=== PATIENT | female | born 1965 | race Caucasian/White ===

== ENCOUNTER 2022-06-27 17:52 | Inpatient (IN) | payer MEDICARE, OTHER, SELFPAY ==
[2022-06-27] VITALS (32 sets, daily range): BP systolic 98–183; BP diastolic 52–93; PULSE 77–111; RESP 10–32; O2SAT 67–100
--- NOTE | 2022-06-27 17:42 | XRR_ITS ---
PROCEDURE INFORMATION: Exam: XR Chest Exam date and time: 06/27/2022 6:48 PM Age: 57 years old Clinical indication: Shortness of breath; Additional info: Resp arrest post ett TECHNIQUE: Imaging protocol: Radiologic exam of the chest. Views: 1 view. COMPARISON: No relevant prior studies available. FINDINGS: Tubes, catheters and devices: Endotracheal tube terminates 3 cm above the teagan. Lungs: Unremarkable. No consolidation. Pleural spaces: Unremarkable. No pleural effusion. No pneumothorax. Heart/Mediastinum: Unremarkable. No cardiomegaly. Bones/joints: Unremarkable. XR/XR chest 1V portable [id number] IMPRESSION: Endotracheal tube noted in proper positioning. No acute findings.
--- NOTE | 2022-06-27 17:42 | ECG_ITS ---
[facility] Test Date: 2022-06-27 Pat Name: Codi Gutierrez Department: Room: Gender: Female Quality Manager: : 1965 Requested By: Jose Angel Ngo Order Number: [id number] Jared MD: Shilpa Pacheco M.D. Measurements Intervals [place] Rate: 103 P: 74 ND: 140 QRS: 62 QRSD: 80 T: 79 QT: 331 QTc: 435 Interpretive Statements SINUS TACHYCARDIA POSSIBLE LEFT ATRIAL ENLARGEMENT [-0.1mV P-WAVE IN V1/V2] SEPTAL MYOCARDIAL INFARCTION , OF INDETERMINATE AGE [40+ ms Q WAVE IN V1/V2] No previous ECG available for comparison Electronically Signed On 06-28-2022 5:26:08 PROTOTYPE ENGINEER by Shilpa Pacheco M.D. [id number]
--- NOTE | 2022-06-27 17:48 | CTR_ITS ---
PROCEDURE INFORMATION: Exam: CT Chest Without Contrast; Diagnostic Exam date and time: 06/27/2022 9:29 PM Age: 57 years old Clinical indication: Other: Post cardiac arrest; Other: Arrival via EMS unresponsive; Additional info: S/P cardiac arrest TECHNIQUE: Imaging protocol: Diagnostic computed tomography of the chest without contrast. Radiation optimization: All CT scans at this facility use at least one of these dose optimization techniques: automated exposure control; mA and/or kV adjustment per patient size (includes targeted exams where dose is matched to clinical indication); or iterative reconstruction. COMPARISON: CR (CHEST, ) 06/27/2022 8:16 PM RADIATION DOSE METRICS: Total DLP (mGy-cm): 1169.09 FINDINGS: Tubes, catheters and devices: Endotracheal tube noted in proper positioning above the teagan. Lungs: No consolidation. No masses. Pleural spaces: No pneumothorax. No pleural effusion. Heart: No coronary artery calcifications. No cardiomegaly. No pericardial effusion. Lymph nodes: Unremarkable. No enlarged lymph nodes. Vasculature: Unremarkable. No aortic aneurysm. Bones/joints: Unremarkable. No acute fracture. Soft tissues: Unremarkable. PROCEDURE INFORMATION: Exam: CT Abdomen And Pelvis Without Contrast Exam date and time: 06/27/2022 9:29 PM Age: 57 years old Clinical indication: Other: Post cardiac arrest; Other: Arrival via EMS unresponsive; Additional info: S/P cardiac arrest TECHNIQUE: Imaging protocol: Computed tomography of the abdomen and pelvis without contrast. Radiation optimization: All CT scans at this facility use at least one of these dose optimization techniques: automated exposure control; mA and/or kV adjustment per patient size (includes targeted exams where dose is matched to clinical indication); or iterative reconstruction. COMPARISON: CR (CHEST, ) 06/27/2022 8:16 PM RADIATION DOSE METRICS: Total DLP (mGy-cm): 1169.09 FINDINGS: Liver: Normal. No mass. Gallbladder and bile ducts: Cholecystectomy. No ductal dilation. Pancreas: Normal. No ductal dilation. Spleen: Normal. No splenomegaly. Adrenal glands: Normal. No mass. Kidneys and ureters: Asymmetric atrophy of the right kidney. Punctate nonobstructing stone in the inferior pole of the right kidney. No hydronephrosis. Stomach and bowel: NG tube terminates in the stomach. Scattered colonic diverticulosis. No obstruction. No mucosal thickening. Appendix: No evidence of appendicitis. Intraperitoneal space: Unremarkable. No free air. No significant fluid collection. Vasculature: Unremarkable. No abdominal aortic aneurysm. Lymph nodes: Unremarkable. No enlarged lymph nodes. Urinary bladder: Solis catheter noted within a decompressed bladder. Reproductive: Unremarkable as visualized. Bones/joints: No acute fracture. Soft tissues: Unremarkable. CT/[place] [id number] IMPRESSION: No acute findings. IMPRESSION: No acute findings.
--- NOTE | 2022-06-27 17:48 | CTR_ITS ---
PROCEDURE INFORMATION: Exam: CT Head Without Contrast Exam date and time: 06/27/2022 9:26 PM Age: 57 years old Clinical indication: Injury or trauma; Other: S/P cardiac arrest; Unconscious; Additional info: Ams/resp arrest TECHNIQUE: Imaging protocol: Computed tomography of the head without contrast. Radiation optimization: All CT scans at this facility use at least one of these dose optimization techniques: automated exposure control; mA and/or kV adjustment per patient size (includes targeted exams where dose is matched to clinical indication); or iterative reconstruction. COMPARISON: No relevant prior studies available. RADIATION DOSE METRICS: Total DLP (mGy-cm): 1205.96 FINDINGS: Brain: No hemorrhage. No edema. Mild diffuse cerebral atrophy. Old lacunar infarct noted in the right caudate head. No mass effect. Cerebral ventricles: No ventriculomegaly. Paranasal sinuses: Opacified maxillary, frontal, ethmoid, and left sphenoid sinuses. Mastoid air cells: Visualized mastoid air cells are well aerated. Bones/joints: Unremarkable. No acute fracture. Soft tissues: Unremarkable. CT/CT head wo con* [id number] IMPRESSION: 1. No acute intracranial abnormality. 2. Old lacunar infarct in the right caudate head.
[2022-06-27 17:53] LABS: Alveolar-Arterial Oxygen Gradi 64.6 mmHg (5-10); Arterial Blood Gas Hematocrit 31.2 % (37-47); Blood Gas Allen Test Pos; Blood Gas Operator Identificat GD; Blood Gas Sample Site Radial, right; Blood Gas Sample Type Arterial; Carboxyhemoglobin 0.8 %THgb (0.4-20.1); HCO3 ABG 22.4 mmol/L (22-26); HGB O2 Sat 96.7 % (95-100); Ionized Calcium Level - ABG 1.3 mmol/L (1.1-1.4); Oxygen Device AMBU; Oxygen Saturation ABG 98.5; Total Hemoglobin 10.2 g/dL (12-16)
[2022-06-27 17:54] LABS: ABG PCO2 65.6 mmHg (35-45); ABG PH Result 7.14 (7.35-7.45)
--- NOTE | 2022-06-27 17:56 | ED_ITS ---
Documented by User: Jose Angel Nguyen DO 07/05/22 07:02 HPI - General Adult General: Chief complaint: Shortness of Breath/Dyspnea Stated complaint: Respiratory Arrest Time Seen by Provider: 06/27/22 18:14 Source: patient Mode of arrival: ambulatory History of Present Illness: 7-year-old female presents emergency room via EMS intubated ventilated by bag valve mask. Patient was acting altered had si gnificant air hunger according to EMS. They report there initially called out for altered mental status possible stroke on arrival they thought she may have been under the influence. She deteriorated she was RSI it and intubated in the field given ketamine on arrival here she is mildly hypertensive completely nonresponsive no family members present at the bedside. Review of Systems General: Reports: ROS unobtainable due to endotracheal tube [facility] ED PFSH: Medical History Asthma COPD (chronic obstructive pulmonary disease) Surgical History H/O tubal ligation Hx of cholecystectomy Family History Other Cancer Social History (Updated 06/28/22 @ 00:00 by Jag Mcgee MD) Smoking and tobacco status: current every day smoker Supplemental PFSH Information: due to endotracheal tube Physical Exam Const: ORIENTATION/CONSCIOUSNESS: Yes patient obtunded HENMT: COMMON NORMALS: normocephalic, atraumatic and hearing grossly normal bilaterally HEAD & SCALP: normocephalic and atraumatic Resp: AUSCULTATION: wheezes Cardio: COMMON NORMALS: regular rate, regular rhythm and No murmurs present (Cardio) RATE: regular rate RHYTHM: regular rhythm GI: COMMON NORMALS: Soft to palpation and No hepatosplenomegaly present AUSCULTATION: Yes normoactive bowel sounds PALPATION: Yes Soft to palpation, No Tenderness to palpation present (GI), No Guarding due to palpation present (GI) and Yes No hepatosplenomegaly present Extremity: COMMON NORMALS: normal to inspection, capillary refill normal, no clubbing, cyanosis or edema, no calf tenderness and no pedal edema Skin: COMMON NORMALS: no rashes or lesions noted GENERAL SKIN EXAM: no rashes or lesions noted Course Vital Signs: Vital signs: Vital Signs Temperature 97.9 F 07/01/22 12:14 Pulse Rate 100 07/01/22 12:14 Respiratory Rate 18 07/01/22 12:14 Blood Pressure 168/85 07/01/22 12:14 Pulse Oximetry 94 07/01/22 12:14 Oxygen Delivery Me thod 07/01/22 11:36 Oxygen Flow Rate 3 06/30/22 00:06 Fraction of Inspir ed Oxygen 30 06/29/22 09:34 MDM - General Adult Medical Decision Making Care signed out to Dr. Davey at change of shift. See final notes for diagnosis and disposition. Medical Records I reviewed the patient's medical records. Lab Data I reviewed the patient's lab results. 07/01/22 09:58 07/01/22 09:58 Radiology Impressions Chest/Abdomen/Pelvis CT 06/27/22 17:48 IMPRESSION: No acute findings. IMPRESSION: No acute findings. Head CT 06/27/22 17:48 IMPRESSION: 1. No acute intracranial abnormality. 2. Old lacunar infarct in the right caudate head. Chest X-Ray 06/27/22 20:11 IMPRESSION: Proper positioning of support apparatus. Laboratory Results WBC 14.9 10^3/uL (4.0-10.0) H 06/27/22 17:46 RBC 4.39 10^6/uL (4.1-5.3) 06/27/22 17:46 Hgb 9.8 g/dL (11.5-15.3) L 06/27/22 17:46 Hct 33.6 % (37.0-47.0) L 06/27/22 17:46 MCV 76.5 fl (81-99) L 06/27/22 17:46 MCH 22.3 pg (28.0-34.0) L 06/27/22 17:46 MCHC 29.2 g/dL (30.0-36.0) L 06/27/22 17:46 RDW 19.5 % (12.1-15.1) H 06/27/22 17:46 Plt Count 308 10^3/cmm (130-400) 06/27/22 17:46 MPV 11.9 fL (7.4-10.4) H 06/27/22 17:46 Neut % (Auto) 76.6 % 06/27/22 17:46 Lymph % (Auto) 11.8 % 06/27/22 17:46 [place] % (Auto) 8.6 % 06/27/22 17:46 Eos % (Auto) 1.2 % 06/27/22 17:46 Baso % (Auto) 0.9 % 06/27/22 17:46 Neut # (Auto) 11.39 10^3/uL (1.8-7.7) H 06/27/22 17:46 Lymph # (Auto) 1.8 10^3/uL (0.8-4.8) 06/27/22 17:46 [place] # (Auto) 1.3 10^3/uL (0.2-0.9) H 06/27/22 17:46 Eos # (Auto) 0.2 10^3/uL (0.0-0.8) 06/27/22 17:46 Baso # (Auto) 0.1 10^3/uL (0.0-0.1) 06/27/22 17:46 Nucleated RBC % (auto) 0 % 06/27/22 17:46 Nucleated RBCs # 0.0 /100WBC 06/27/22 17:46 Specimen Type Arterial 06/27/22 19:29 Sample Site Radial, right 06/27/22 19:29 ABG pH 7.23 (7.35-7.45) L 06/27/22 19:29 ABG pCO2 48.4 mmHg (35-45) H 06/27/22 19:29 ABG pO2 514.0 mmHg (80.0-100.0) H 06/27/22 19:29 ABG HCO3 20.4 mmol/L (22-26) L 06/27/22 19:29 ABG O2 Saturation 98.5 06/27/22 17:35 ABG Base Excess -6.9 mmol/L (-2.0-2.0) L 06/27/22 19:29 Zachary Test Pos 06/27/22 19:29 A-a O2 Gradient 64.6 mmHg (5-10) H 06/27/22 17:35 Hematocrit 30.0 % (37-47) L 06/27/22 19:29 Hgb O2 Saturation 96.7 % (95-100) 06/27/22 17:35 Carboxyhemoglobin 0.8 %THgb (0.4-20.1) 06/27/22 17:35 Methemoglobin 1.0 % (0.4-1.5) 06/27/22 17:35 Total Hemoglobin 10.2 g/dL (12-16) L 06/27/22 17:35 Sodium 140.0 mmol/L (131-143) 06/27/22 17:35 Potassium 5.0 mmol/L (3.5-5.0) 06/27/22 17:35 Glucose 159.0 mg/dL (70-115) H 06/27/22 17:35 Ionized Calcium 1.3 mmol/L (1.1-1.4) 06/27/22 17:35 O2 Delivery Device Vent 06/27/22 19:29 FiO2 100.0 % 06/27/22 19:29 PEEP 8.0 cmH20 06/27/22 19:29 Propeller Driven Airplane Mechanic ID [place] 06/27/22 19:29 Sodium 135 mmol/L (136-145) L 06/27/22 17:46 Potassium 5.3 mmol/L (3.5-5.1) H 06/27/22 17:46 Chloride 99 mmol/L (98-107) 06/27/22 17:46 Carbon Dioxide 22 mmol/L (22-29) 06/27/22 17:46 Anion Gap 19.3 (5-19) H 06/27/22 17:46 BUN 52 mg/dL (6-20) H 06/27/22 17:46 Creatinine 139.6 mg/dL (> or = 20.0) 06/27/22 20:05 GFR Calculation 12.9 mL/min (90-130) L 06/27/22 17:46 Glucose 149 mg/dL (65-115) H 06/27/22 17:46 POC Glucose 176 mg/dL (70-110) H 06/27/22 18:11 Specific [place] Not Reportable 06/27/22 20:05 Calculated Osmolality 297 mOsm/kg (285-295) H 11/09/22 17:46 Lactic Acid 0.9 mmol/L (0.5-2.2) 06/27/22 17:46 Calcium 9.8 mg/dL (8.5-10.5) 06/27/22 17:46 Total Bilirubin 0.2 mg/dL (0.15-1.2) 06/27/22 17:46 AST 38 U/L (0-32) H 06/27/22 17:46 ALT 19 U/L (0-33) 06/27/22 17:46 Alkaline Phosphatase 161 U/L (35-105) H 06/27/22 17:46 Troponin T Baseline 41 ng/L (0-10) H 06/27/22 17:46 Troponin T 120 Minute 30.47 ng/L (0-10) H 06/27/22 19:49 Delta Troponin T -10.53 ABS# (0-10) L 06/27/22 19:49 Total Protein 8.3 g/dL (6.6-8.7) 06/27/22 17:46 Albumin 3.3 g/dL (3.5-5.2) L 06/27/22 17:46 Globulin 5.0 g/dL (1.3-4.6) H 06/27/22 17:46 Urine Color Yellow (Yellow) 06/27/22 20:05 Urine Appearance Clear (CLEAR) 06/27/22 20:05 Urine pH 5 (5-7) 06/27/22 20:05 Urine pH 5.6 (4.5-9.0) 06/27/22 20:05 Ur Specific [place] 1.025 (1.005-1.030) 06/27/22 20:05 Urine Protein 1+ (Negative) H 06/27/22 20:05 Urine Glucose (UA) Norm (Normal) 06/27/22 20:05 Urine Ketones 1+ (Negative) H 06/27/22 20:05 Urine Blood 3+ (Negative) H 06/27/22 20:05 Urine Nitrate Negative (Negative) 06/27/22 20:05 Urine Bilirubin 1+ (Negative) H 06/27/22 20:05 Prot Sulfosalicylic Acd Negative (Negative) 06/27/22 20:05 Urine Urobilinogen Norm mg/dL (Negative) 06/27/22 20:05 Ur Leukocyte Esterase Negative (Negative) 06/27/22 20:05 Urine RBC 0-4 /hpf (0-2) H 06/27/22 20:05 Urine WBC 0-4 /hpf (0-5) H 06/27/22 20:05 Ur Squamous Epith Cells 0-4 /hpf (0-5) H 06/27/22 20:05 Amorphous Sediment Not Reportable 06/27/22 20:05 Urine Bacteria Trace /hpf (NONE) 06/27/22 20:05 Hyaline Casts 5-10 /lpf H 06/27/22 20:05 Urine Oxidant Negative mcg/mL (<200) 06/27/22 20:05 Urine Opiates Level Negative ng/mL (<100) 06/27/22 20:05 Urine Oxycodone Negative ng/mL (<100) 06/27/22 20:05 U Methadone Metabolites Negative ng/mL (<100) 06/27/22 20:05 Barbiturates Negative ng/mL (<300) 06/27/22 20:05 Phencyclidine (PCP) Negative ng/mL (<25) 06/27/22 20:05 Amphetamines Positive ng/mL (<500) A 06/27/22 20:05 Benzodiazepines Negative ng/mL (<100) 06/27/22 20:05 Cocaine Metabolite Negative ng/mL (<150) 06/27/22 20:05 U Marijuana Metabolites Negative ng/mL (<20) 06/27/22 20:05 Abn Spec Valid Drug Scn Not Reportable 06/27/22 20:05 Urine Drug Screen Note See note 06/27/22 20:05 SARS-CoV-2 Ag (Rapid) negative (Negative) 06/27/22 18:25 Discharge Plan Discharge Patient Disposition: Admitted As Inpatient Admit Provider: Jag Mcgee Clinical Impression: Acute respiratory failure with hypoxemia, Acute exacerbation of chronic obstructive airways disease, Acute kidney injury Condition: Stable Discharge Diet: Diabetic Coding Level of Care Code ED Hi Lift Operator for Chg Fwd Exam Detailed Documented by User: Emy Davey MD 06/27/22 22:21 HPI - General Adult General: Chief complaint: Shortness of Breath/Dyspnea Stated complaint: Respiratory Arrest Time Seen by Provider: 06/27/22 18:14 History of Present Illness: 57-year-old female presents emergency room via EMS intubated ventilated by bag valve mask. Patient was acting altered had significant air hunger according to EMS. They report there initially called out for altered mental status possible stroke on arrival they thought she may have been under the influence. She deteriorated she was RSI it and intubated in the field given ketamine on arrival here she is mildly hypertensive completely nonresponsive no family members present at the bedside. [facility] ED PFSH: Medical History Asthma COPD (chronic obstructive pulmonary disease) Surgical History H/O tubal ligation Hx of cholecystectomy Family History Other Cancer Social History (Updated 06/28/22 @ 00:00 by Jag Mcgee MD) Smoking and tobacco status: current every day smoker Course Vital Signs: Vital signs: Vital Signs Temperature 97.9 F 07/01/22 12:14 Pulse Rate 100 07/01/22 12:14 Respiratory Rate 18 07/01/22 12:14 Blood Pressure 168/85 07/01/22 12:14 Pulse Oximetry 94 07/01/22 12:14 Oxygen Delivery Me thod 07/01/22 11:36 Oxygen Flow Rate 3 06/30/22 00:06 Fraction of Inspir ed Oxygen 30 06/29/22 09:34 MDM - General Adult Medical Decision Making Care signed out to Dr. Davey at change of shift. See final notes for diagnosis and disposition. Patient presents here with respiratory failure she was intubated in the field by EMS likely from a COPD exacerbation patient's head CT and chest CT here are normal I did speak to the hospitalist will admit she also has acute kidney injury. Lab Data 07/01/22 09:58 07/01/22 09:58 Radiology Impressions Chest/Abdomen/Pelvis CT 06/27/22 17:48 IMPRESSION: No acute findings. IMPRESSION: No acute findings. Head CT 06/27/22 17:48 IMPRESSION: 1. No acute intracranial abnormality. 2. Old lacunar infarct in the right caudate head. Chest X-Ray 06/27/22 20:11 IMPRESSION: Proper positioning of support apparatus. Laboratory Results WBC 14.9 10^3/uL (4.0-10.0) H 06/27/22 17:46 RBC 4.39 10^6/uL (4.1-5.3) 06/27/22 17:46 Hgb 9.8 g/dL (11.5-15.3) L 06/27/22 17:46 Hct 33.6 % (37.0-47.0) L 06/27/22 17:46 MCV 76.5 fl (81-99) L 06/27/22 17:46 MCH 22.3 pg (28.0-34.0) L 06/27/22 17:46 MCHC 29.2 g/dL (30.0-36.0) L 06/27/22 17:46 RDW 19.5 % (12.1-15.1) H 06/27/22 17:46 Plt Count 308 10^3/cmm (130-400) 06/27/22 17:46 MPV 11.9 fL (7.4-10.4) H 06/27/22 17:46 Neut % (Auto) 76.6 % 06/27/22 17:46 Lymph % (Auto) 11.8 % 06/27/22 17:46 [place] % (Auto) 8.6 % 06/27/22 17:46 Eos % (Auto) 1.2 % 06/27/22 17:46 Baso % (Auto) 0.9 % 06/27/22 17:46 Neut # (Auto) 11.39 10^3/uL (1.8-7.7) H 06/27/22 17:46 Lymph # (Auto) 1.8 10^3/uL (0.8-4.8) 06/27/22 17:46 [place] # (Auto) 1.3 10^3/uL (0.2-0.9) H 06/27/22 17:46 Eos # (Auto) 0.2 10^3/uL (0.0-0.8) 06/27/22 17:46 Baso # (Auto) 0.1 10^3/uL (0.0-0.1) 06/27/22 17:46 Nucleated RBC % (auto) 0 % 06/27/22 17:46 Nucleated RBCs # 0.0 /100WBC 06/27/22 17:46 Specimen Type Arterial 06/27/22 19:29 Sample Site Radial, right 06/27/22 19:29 ABG pH 7.23 (7.35-7.45) L 06/27/22 19:29 ABG pCO2 48.4 mmHg (35-45) H 06/27/22 19:29 ABG pO2 514.0 mmHg (80.0-100.0) H 06/27/22 19:29 ABG HCO3 20.4 mmol/L (22-26) L 06/27/22 19:29 ABG O2 Saturation 98.5 06/27/22 17:35 ABG Base Excess -6.9 mmol/L (-2.0-2.0) L 06/27/22 19:29 Zachary Test Pos 06/27/22 19:29 A-a O2 Gradient 64.6 mmHg (5-10) H 06/27/22 17:35 Hematocrit 30.0 % (37-47) L 06/27/22 19:29 Hgb O2 Saturation 96.7 % (95-100) 06/27/22 17:35 Carboxyhemoglobin 0.8 %THgb (0.4-20.1) 06/27/22 17:35 Methemoglobin 1.0 % (0.4-1.5) 06/27/22 17:35 Total Hemoglobin 10.2 g/dL (12-16) L 06/27/22 17:35 Sodium 140.0 mmol/L (131-143) 06/27/22 17:35 Potassium 5.0 mmol/L (3.5-5.0) 06/27/22 17:35 Glucose 159.0 mg/dL (70-115) H 06/27/22 17:35 Ionized Calcium 1.3 mmol/L (1.1-1.4) 06/27/22 17:35 O2 Delivery Device Vent 06/27/22 19:29 FiO2 100.0 % 06/27/22 19:29 PEEP 8.0 cmH20 06/27/22 19:29 Propeller Driven Airplane Mechanic ID Dez 06/27/22 19:29 Sodium 135 mmol/L (136-145) L 06/27/22 17:46 Potassium 5.3 mmol/L (3.5-5.1) H 06/27/22 17:46 Chloride 99 mmol/L (98-107) 06/27/22 17:46 Carbon Dioxide 22 mmol/L (22-29) 06/27/22 17:46 Anion Gap 19.3 (5-19) H 06/27/22 17:46 BUN 52 mg/dL (6-20) H 06/27/22 17:46 Creatinine 139.6 mg/dL (> or = 20.0) 06/27/22 20:05 GFR Calculation 12.9 mL/min (90-130) L 06/27/22 17:46 Glucose 149 mg/dL (65-115) H 06/27/22 17:46 POC Glucose 176 mg/dL (70-110) H 06/27/22 18:11 Specific [place] Not Reportable 06/27/22 20:05 Calculated Osmolality 297 mOsm/kg (285-295) H 06/27/22 17:46 Lactic Acid 0.9 mmol/L (0.5-2.2) 06/27/22 17:46 Calcium 9.8 mg/dL (8.5-10.5) 06/27/22 17:46 Total Bilirubin 0.2 mg/dL (0.15-1.2) 06/27/22 17:46 AST 38 U/L (0-32) H 06/27/22 17:46 ALT 19 U/L (0-33) 06/27/22 17:46 Alkaline Phosphatase 161 U/L (35-105) H 06/27/22 17:46 Troponin T Baseline 41 ng/L (0-10) H 06/27/22 17:46 Troponin T 120 Minute 30.47 ng/L (0-10) H 06/27/22 19:49 Delta Troponin T -10.53 ABS# (0-10) L 06/27/22 19:49 Total Protein 8.3 g/dL (6.6-8.7) 06/27/22 17:46 Albumin 3.3 g/dL (3.5-5.2) L 06/27/22 17:46 Globulin 5.0 g/dL (1.3-4.6) H 06/27/22 17:46 Urine Color Yellow (Yellow) 06/27/22 20:05 Urine Appearance Clear (CLEAR) 06/27/22 20:05 Urine pH 5 (5-7) 06/27/22 20:05 Urine pH 5.6 (4.5-9.0) 06/27/22 20:05 Ur Specific [place] 1.025 (1.005-1.030) 06/27/22 20:05 Urine Protein 1+ (Negative) H 06/27/22 20:05 Urine Glucose (UA) Norm (Normal) 06/27/22 20:05 Urine Ketones 1+ (Negative) H 06/27/22 20:05 Urine Blood 3+ (Negative) H 06/27/22 20:05 Urine Nitrate Negative (Negative) 06/27/22 20:05 Urine Bilirubin 1+ (Negative) H 06/27/22 20:05 Prot Sulfosalicylic Acd Negative (Negative) 06/27/22 20:05 Urine Urobilinogen Norm mg/dL (Negative) 06/27/22 20:05 Ur Leukocyte Esterase Negative (Negative) 06/27/22 20:05 Urine RBC 0-4 /hpf (0-2) H 06/27/22 20:05 Urine WBC 0-4 /hpf (0-5) H 06/27/22 20:05 Ur Squamous Epith Cells 0-4 /hpf (0-5) H 06/27/22 20:05 Amorphous Sediment Not Reportable 06/27/22 20:05 Urine Bacteria Trace /hpf (NONE) 06/27/22 20:05 Hyaline Casts 5-10 /lpf H 06/27/22 20:05 Urine Oxidant Negative mcg/mL (<200) 06/27/22 20:05 Urine Opiates Level Negative ng/mL (<100) 06/27/22 20:05 Urine Oxycodone Negative ng/mL (<100) 06/27/22 20:05 U Methadone Metabolites Negative ng/mL (<100) 06/27/22 20:05 Barbiturates Negative ng/mL (<300) 06/27/22 20:05 Phencyclidine (PCP) Negative ng/mL (<25) 06/27/22 20:05 Amphetamines Positive ng/mL (<500) A 06/27/22 20:05 Benzodiazepines Negative ng/mL (<100) 06/27/22 20:05 Cocaine Metabolite Negative ng/mL (<150) 06/27/22 20:05 U Marijuana Metabolites Negative ng/mL (<20) 06/27/22 20:05 Abn Spec Valid Drug Scn Not Reportable 06/27/22 20:05 Urine Drug Screen Note See note 06/27/22 20:05 SARS-CoV-2 Ag (Rapid) negative (Negative) 06/27/22 18:25 Critical Care Time Critical Care Time: Critical Care Time: Yes Total Critical Care Time: 40 Attestation: The high probability of a clinically significant, sudden or life threatening deterioration of the patient's resp system(s) required my full and direct attention, intervention and personal management. The critical care time is as shown. This time is in addition to time spent performing any reported procedures but includes the following: [x] Data and vital sign review and interpretation [x] Patient assessment, examination and intervention [x] Documentation [x] Medication orders and management Discharge Plan Discharge Patient Disposition: Admitted As Inpatient Admit Provider: Jag Mcgee Clinical Impression: Acute respiratory failure with hypoxemia, Acute exacerbation of chronic obstructive airways disease, Acute kidney injury Condition: Stable Discharge Diet: Diabetic Coding Level of Care Code ED Hi Lift Operator for Chg Fwd Exam Detailed
[2022-06-27] MEDS: albuterol 2.5 mg/3 mL Neb INHALATION (18:00)
[2022-06-27] MEDS: propofol 1,000 MG/100 ML INJ 2.4 MG IV (18:00)
[2022-06-27 18:14] LABS: Glucose Point of Care 176 mg/dL (70-110)
--- NOTE | 2022-06-27 18:14 | PC.NURSE ---
PT PLACED ON CONTINUOUS NIBP, SPO2, AND CM
[2022-06-27] MEDS: ipratropium-albuterol 3 mL Neb INHALATION (18:20)
[2022-06-27 18:39] LABS: Basophils # 0.1 10^3/uL (0.0-0.1); Basophils % 0.9 %; Eosinophils # 0.2 10^3/uL (0.0-0.8); Eosinophils % 1.2 %; Hematocrit 33.6 % (37.0-47.0); Hemoglobin 9.8 g/dL (11.5-15.3); Lymphocytes # 1.8 10^3/uL (0.8-4.8); Lymphocytes % 11.8 %; Mean Corpuscular HGB Conc 29.2 g/dL (30.0-36.0); Mean Corpuscular Hemoglobin 22.3 pg (28.0-34.0); Mean Corpuscular Volume 76.5 fl (81-99); Mean Platelet Volume 11.9 fL (7.4-10.4); Monocytes # 1.3 10^3/uL (0.2-0.9); Monocytes % 8.6 %; Neutrophils # 11.39 10^3/uL (1.8-7.7); Neutrophils % 76.6 %; Nucleated Red Blood Cells % 0 %; Platelet Count 308 10^3/cmm (130-400); Red Blood Count 4.39 10^6/uL (4.1-5.3); Red Cell Distribution Width 19.5 % (12.1-15.1); White Blood Count 14.9 10^3/uL (4.0-10.0)
--- NOTE | 2022-06-27 18:54 | PC.PHAR ---
PT PHARMACY CLOSED - PT DAUGHTER HAD A LIST OF MEDICATIONS - PT ARRIVED INTUBATED UNABLE TO VERIFY MEDS- VERIFIED USING EXTERNAL MED LIST LAST FILLED AND BY LIST DAUGHTER HAD
[2022-06-27 18:58] LABS: SARS Covid-2 Antigen negative (Negative)
[2022-06-27] MEDS: sodium chloride 0.9% 1,000 ML 999 ML IV (19:00)
[2022-06-27 19:03] LABS: Troponin(5th) Baseline 41 ng/L (0-10)
[2022-06-27 19:04] LABS: Albumin Level 3.3 g/dL (3.5-5.2); Alkaline Phosphatase 161 U/L (35-105); Blood Urea Nitrogen 52 mg/dL (6-20); Calcium 9.8 mg/dL (8.5-10.5); Carbon Dioxide 22 mmol/L (22-29); Chloride 99 mmol/L (98-107); Glomerular Filtration Rate 12.9 mL/min (90-130); Glucose 149 mg/dL (65-115); Lactic Sepsis W/Reflex 0.9 mmol/L (0.5-2.2); Osmolality Calculated 297 mOsm/kg (285-295); Sodium 135 mmol/L (136-145); Total Bilirubin 0.2 mg/dL (0.15-1.2); Total Protein 8.3 g/dL (6.6-8.7)
[2022-06-27 19:40] LABS: ABG PCO2 48.4 mmHg (35-45); ABG PH Result 7.23 (7.35-7.45); Base Excess ABG -6.9 mmol/L (-2.0-2.0); Blood Gas Allen Test Pos; Blood Gas Operator Identificat WALCI; Blood Gas Sample Site Radial, right; Blood Gas Sample Type Arterial; HCO3 ABG 20.4 mmol/L (22-26)
[2022-06-27 19:41] LABS: Oxygen Device VENT
--- NOTE | 2022-06-27 19:42 | ECG_ITS ---
[facility] Test Date: 2022-06-27 Pat Name: Codi Gutierrez Department: Room: Gender: Female Graphite Disk Assembler: : 1965 Requested By: Jose Angel Ngo Order Number: [id number] Jared MD: Shilpa Pacheco M.D. Measurements Intervals [place] Rate: 104 P: 75 PA: 116 QRS: 63 QRSD: 82 T: 79 QT: 344 QTc: 454 Interpretive Statements SINUS TACHYCARDIA WITH SHORT PA INTERVAL POSSIBLE LEFT ATRIAL ENLARGEMENT [-0.1mV P-WAVE IN V1/V2] Compared to ECG 06/27/2022 18:16:03 Short PA interval now present Myocardial infarct finding no longer present Electronically Signed On 06-28-2022 11:40:21 PLANT TECHNICIAN/CONTROL ROOM OPERATOR by Shilpa Pacheco M.D. [id number]
[2022-06-27 19:43] LABS: Alanine Aminotransferase 19 U/L (0-33); Anion Gap 19.3 (5-19); Aspartate Amino Transferase 38 U/L (0-32); Potassium 5.3 mmol/L (3.5-5.1)
--- NOTE | 2022-06-27 20:11 | XRR_ITS ---
PROCEDURE INFORMATION: Exam: XR Chest Exam date and time: 06/27/2022 8:16 PM Age: 57 years old Clinical indication: Device placement; Ng tube; Additional info: Post ng tube placement TECHNIQUE: Imaging protocol: Radiologic exam of the chest. Views: 1 view. COMPARISON: CR (CHEST, ) 06/27/2022 6:48 PM FINDINGS: Tubes, catheters and devices: Endotracheal tube in proper position above the teagan. NG tube seen entering into the stomach and terminating outside the field of view. Lungs: No consolidation. Pleural spaces: No pleural effusion. No pneumothorax. Heart/Mediastinum: No cardiomegaly. Bones/joints: Visualized osseous structures are intact. XR/XR chest 1V [id number] IMPRESSION: Proper positioning of support apparatus.
[2022-06-27 20:22] LABS: Add Urine Microscopic? YES; Bilirubin Urine 1+ (Negative); Blood Urine 3+ (Negative); Glucose Urine UA Norm (Normal); Ketones Urine 1+ (Negative); Leukocyte Esterase Urine Negative (Negative); Nitrate Urine Negative (Negative); Protein Urine 1+ (Negative); Specific Gravity, Urine 1.025 (1.005-1.030); Sulfosalicylic Acid Urine Negative (Negative); Urine Appearance Clear (CLEAR); Urine Color Yellow (Yellow); Urobilinogen Urine Norm (Negative); pH Urine 5 (5-7)
[2022-06-27 20:27] LABS: Add Urine Culture? No; Bacteria Urine TRACE /hpf; RBC Urine 0-4 /hpf (0-2); Squamous Epithelial Cell Urine 0-4 /hpf (0-5); WBC Urine 0-4 /hpf (0-5)
[2022-06-27 20:51] LABS: Troponin 5 2HR 30.47 ng/L (0-10)
[2022-06-27 20:59] LABS: Troponin 5 2HR Delta -10.53 ABS# (0-10)
--- NOTE | 2022-06-27 23:18 | PC.NURSE ---
Report called to ICU.
--- NOTE | 2022-06-27 23:38 | PM.HP ---
Providers/Chief Complaint Admitting Physician: Jag Mcgee Chief Complaint: Respiratory Arrest History of Present Illness 57-year-old lady with history of asthma, COPD, prior smoking history, was brought in by EMS after found AMS, reported speaking confusedly, having jerky movements. Her daughter reports that the friend her mother had been staying with called her brother who came to see her and then called EMS, they were initially concerned about her possibly having a stroke. Her daughter states that she had recently been more short of breath than usual having to use her nebulizer more often than before. Her daughter reports also she has been feeling dizzy, although dizziness has been a longstanding issue which she states her primary doctor thought was related possibly to long COVID. Due to respiratory distress she was intubated in route. In ER In the ER air entry was diminished, sounding tight. Received breathing treatment, Solu-Medrol. She is afebrile, but with leukocytosis 14.9, predominantly neutrophilic. CT chest abdomen pelvis without acute findings. Head CT with old lacunar infarct in the right caudate head. Sodium 135, potassium 5.3, creatinine elevated at 3.6. BUN 52. Anion gap 19.3. Lactic acid 0.9. Glucose 149, as high as 176, AST mildly elevated 38. Alk phos 161. Baseline troponin 41, 2-hour troponin 30.47. Albumin 3.3. Globulin elevated at 5 g/dL. UA with 1+ protein, 1+ ketones, 3+ blood. 1+ bilirubin. 0-4 RBC, 0-4 WBC, 0-4 squamous Pelo cells. 5-10 hyaline casts. Review of Systems General: Reports: ROS unobtainable due to endotracheal tube and ROS unobtainable due to medical condition Medications/Allergies Home Medications Medication Instructions Recorded Confirmed Last Taken Type albuterol sulfate 90 mcg/actuation 2 puff inhalation Q4H PRN 06/27/22 06/27/22 Unknown History aerosol inhaler Shortness Of Breath Or Wheezing atorvastatin 20 mg tablet 20 mg PO QPM 06/27/22 06/27/22 Unknown History baclofen 20 mg tablet 20 mg PO BID 06/27/22 06/27/22 Unknown History guaifenesin 600 mg tablet, 1,200 mg PO BID PRN Cough 06/27/22 06/27/22 Unknown History extended release 12 hr (Mucinex) ipratropium 0.5 mg-albuterol 3 mg 3 ml inhalation Q6H PRN Shortness 06/27/22 06/27/22 Unknown History (2.5 mg base)/3 mL nebulization Of Breath Or Wheezing soln losartan 100 1 tab PO DAILY 06/27/22 06/27/22 Unknown History mg-hydrochlorothiazide 25 mg tablet meloxicam 15 mg tablet 15 mg PO DAILY 06/27/22 06/27/22 Unknown History omeprazole 40 mg capsule,delayed 40 mg PO DAILY 06/27/22 06/27/22 Unknown History release Allergies Allergy/AdvReac Type Severity Reaction Status Date / Time morphine Allergy Unknown Verified 06/27/22 18:53 PFSH Acute PFSH: Medical History Asthma COPD (chronic obstructive pulmonary disease) Surgical History H/O tubal ligation Hx of cholecystectomy Family History Other Cancer Social History (Updated 06/28/22 @ 00:00 by Jag Mcgee MD) Smoking and tobacco status: current every day smoker Vitals/I&O/Wt Last Vital Signs Pulse 101 H 06/27/22 23:00 Resp 18 06/27/22 23:00 BP 114/60 06/27/22 23:00 Pulse Ox 100 06/27/22 23:00 O2 Del Method 06/27/22 18:19 FiO2 100 06/27/22 19:46 06/27/22 06/27/22 06/28/22 14:59 22:59 06:59 Intake Total 9.024 / 9.024 Balance 9.024 / 9.024 Weight last 48 hrs Weight 79.832 kg Physical Exam Const: GENERAL APPEARANCE: patient mechanically ventilated HENMT: COMMON NORMALS: oropharynx normal Neck/C-Spine: COMMON NORMALS: no JVD Resp: AUSCULTATION: diminished lung sounds Cardio: COMMON NORMALS: no JVD, regular rhythm, S1 normal heart sound present, S2 normal heart sound present and No murmurs present (Cardio) RHYTHM: regular rhythm HEART SOUNDS: S1 normal heart sound present and S2 normal heart sound present GI: COMMON NORMALS: Normal to inspection, nondistended, normoactive bowel sounds present, Soft to palpation and non-tender PALPATION: Yes Soft to palpation Extremity: COMMON NORMALS: no joint enlargement and no pedal edema Neuro: COMMON NORMALS: patient oriented x3 and moves all extremities SENSORIUM/ORIENTATION: Yes alert Skin: COMMON NORMALS: no rashes or lesions noted GENERAL SKIN EXAM: no rashes or lesions noted Urinary Catheter Management: [facility]: Cath Placed During This Visit: yes Urinary Catheter Date of Insertion: 06/27/22 Urinary Catheter Time of Insertion: 20:05 Data : 06/27/22 17:46 06/27/22 17:46 Micro: Microbiology 06/27/22 18:25 Blood Culture - Preliminary Blood SPECIMEN COLLECTED 06/27/22 18:27 Blood Culture - Preliminary Blood SPECIMEN COLLECTED A&P Assessment and plan (1) Acute respiratory failure with hypoxemia: Intubated in the field due to respiratory distress, with suspected COPD, asthma exacerbation, with diminished air entry, sounding tight in ER. Received breathing treatment, Solu-Medrol. Continue Solu-Medrol, breathing treatments, empiric antibiotic with ceftriaxone. For now empirically vancomycin as well. Does not appear to have focal pneumonia. Collect sputum culture. Will assess COVID-19 PCR. Check D-dimer. Complete troponin EKG series. Assess TTE. Continue mechanical ventilatory support, currently restless, pulling on life support equipment, required escalation of sedation. (2) Acute encephalopathy: Unclear etiology of acute encephalopathy, with altered mental status today. Daughter reports she had been more short of breath and having to use her nebulizer more often today. Otherwise has been complaining of chronic dizziness. Discussed with her daughter regarding finding of old lacunar infarct on CT head. Daughter states that she was saying incomprehensible things when her brother had arrived to see her. It is difficult to say if this is secondary to encephalopathy, or whether CVA may have been a component. Discussed further evaluation with CT angiogram head and neck discussed risk of contrast nephropathy given also already having DANIEL. She would otherwise be out side the window for tPA. Certainly difficulty with permissive hypertension given she is intubated, requiring sedation as she is currently waking up, restless in bed. We will add NS infusion. Monitor blood pressure. Hold antihypertensives. Additionally possible acute encephalopathy secondary to medication, possibly baclofen, possibly in setting of DANIEL, or possible other causes. Follow-up UDS as well. If oxygenation improving, able to wean down sedation and reassess mental status. (3) Aphasia: As above, question of possible aphasia, versus encephalopathy/AMS. Further assessment with CTA head and neck. Mental status reassessment as soon as respiratory status improving. With known prior CVA will need further optimization of risk factors going forward. With improving from acute condition, when able to would benefit from MRI. (4) Cerebrovascular accident, old: She has known hypertension, appears also to be hyperglycemic, daughter is not aware of history of diabetes, although her sister had recently been diagnosed with diabetes. Will check A1c. She is a smoker, and will need to stop smoking. Would also discontinue meloxicam due to risk of CVA, avoid NSAIDs. Assess TTE Monitor on telemetry. Add aspirin, continue statin. (5) Acute exacerbation of chronic obstructive airways disease: As above (6) Asthma exacerbation: As above (7) Acute kidney injury: Unclear etiology, but does take NSAIDs, also losartan, HCTZ. No obstructive nephropathy noted on CT. Will give gentle fluid challenge. Reassess renal function. It is unclear whether this is progression of CKD with hypertensive nephropathy, with hyperglycemia question of diabetic nephropathy, versus DANIEL. Last renal function we have is from 2018 when creatinine was 1.1. Check CK. (8) Dizziness: Reported chronic dizziness, her primary doctor thought may be related to long COVID. Additional assessment as above. May benefit from MRI to assess for any cerebellar/central cause of dizziness. (9) Hyperkalemia: Hold losartan. Reassess potassium, renal function. (10) Transaminitis: Minimal elevation of AST, 38. Check CK. Check COVID-19 PCR. Follow-up liver parameters. Consider further investigation depending on levels. (11) Troponin level elevated: Abnormal troponin level, does not appear to have rising trend. No reported complaints of chest pain. EKG without obvious acute ischemia. Suspect secondary to demand ischemia, however, does have risk factors of CAD as well, and at some point later on would benefit from further risk stratification, and long-term risk factor optimization. Needs to quit smoking. (12) Hyperglycemia: Assess A1c. We will give low-dose Lantus, sliding scale insulin. (13) Ketonuria: Does not have diagnosis of diabetes, but quite hyperglycemic. Check serum ketones. Start Lantus 5 units, sliding scale insulin. Reassess chemistries. (14) Smoking addiction: Encourage cessation Attestations Medical Necessity Statement*: Admission of over 2 midnights anticipated for assessment management of acute respiratory failure with hypoxia, COPD, asthma exacerbation, acute encephalopathy, DANIEL, additional medical problems as above. Critical Care Time: The high probability of a clinically significant, sudden or life threatening deterioration of the patient's respiratory, neurologic system(s) required my full and direct attention, intervention and personal management. The critical care time is as shown. This time is in addition to time spent performing any reported procedures but includes the following: x Data and vital sign review and interpretation x Patient assessment, examination and intervention x Documentation x Medication orders and management Critical Care Time (min): 55 Coding Level of Care Code Acute Transportation Engineering Technician for [facility] Fwd Exam Comprehensive Diagnoses Acute respiratory failure with hypoxemia J96.01 Acute encephalopathy G93.40 Aphasia R47.01 Cerebrovascular accident, old Z86.73 Acute exacerbation of chronic obstructive airways disease J44.1 Asthma exacerbation J45.901 Acute kidney injury N17.9 Dizziness R42 Hyperkalemia E87.5 Transaminitis R74.01 Troponin level elevated R77.8 Hyperglycemia R73.9 Ketonuria R82.4 Smoking addiction F17.200
--- NOTE | 2022-06-27 23:40 | PC.NURSE ---
pt arrived to ICU from ER on stretcher @2334, continuos monitoring initiated, skin inspected, open sore on sacrum noted.
--- NOTE | 2022-06-27 23:42 | ECG_ITS ---
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 Measurements Intervals Lawrence Rate: 99 P: 77 MO: 142 QRS: 61 QRSD: 84 T: 76 QT: 354 QTc: 455 Interpretive Statements SINUS RHYTHM POSSIBLE LEFT ATRIAL ENLARGEMENT [-0.1mV P-WAVE IN V1/V2] Compared to ECG 06/27/2022 19:47:36 Sinus tachycardia no longer present Short MO interval no longer present Electronically Signed On 06-28-2022 15:05:03 JUDGE CLERK by Gentry Malhotra M.D. [id number]
[2022-06-27] MEDS: propofol 1,000 MG/100 ML INJ 26.35 MG IV (23:55)
[2022-06-28] VITALS (104 sets, daily range): BP systolic 102–161; BP diastolic 57–93; PULSE 79–113; RESP 17–24; TEMP 36.7–37.1; O2SAT 89–100
--- NOTE | 2022-06-28 00:33 | USCV_ITS ---
summer Age: 57 Gender: F : 1965 Exam Date: 06/28/2022 01:42 Ordering Phys: Jag Mcgee MD Technologist: JAMIE [place]am [place] [facility] [place] Indication: respiratory failure. elevated troponin. no priors. Pt on vent in ICU-2 BP: 114 / 60 HR: 96 Rhythm: Sinus Technical Quality: Adequate MEASUREMENTS (Male / Female) Normal Values 2D ECHO LV Diastolic Diameter PLAX 3.4 cm 4.2 - 5.9 / 3.9 - 5.3 cm LV Systolic Diameter PLAX 2.1 cm IVS Diastolic Thickness 1.3 cm 0.6 - 1.0 / 0.6 - 0.9 cm IVS Systolic Thickness 1.4 cm LVPW Diastolic Thickness 1.0 cm 0.6 - 1.0 / 0.6 - 0.9 cm LVPW Systolic Thickness 1.5 cm LVOT Diameter 1.9 cm LV Ejection Fraction 2D Teich 70.9 % LV Ejection Fraction MOD 2C 59.7 % LV Ejection Fraction 2C AL 60.3 % LA Diameter 3.4 cm LA Width 3.0 cm LA Height 4.8 cm RA Width 3.4 cm RA Height 3.8 cm Aorta at Sinotubular Diameter 2.8 cm IVC Diameter 2.4 cm M-MODE Aortic Annulus Diameter 2.6 cm LA Ao Ratio MM 1.4 MV E Point Septal Separation 0.3 cm DOPPLER AV Peak Velocity 155.0 cm/s LVOT Peak Velocity 129.0 cm/s AV Area Cont Eq vti 2.2 cm squared AV Area Cont Eq pk 2.3 cm squared MV Peak Velocity 118.0 cm/s MV Area PHT 3.2 cm squared Mitral E to A Ratio 0.8 MV E' Velocity 51.5 cm/s Mitral E to MV E' Ratio 11.0 Mitral E to LV E' Lateral Ratio 10.2 Mitral E to LV E' Septal Ratio 12.1 TR Peak Velocity 226.3 cm/s TR Peak Gradient 20.5 mmHg TV Peak E Velocity 49.0 cm/s Right Atrial Pressure 5.0 mmHg Pulmonary Artery Systolic Pressu 25.5 mmHg PV Peak Velocity 136.0 cm/s RV Acceleration Time 0.1 s RV Ejection Time 0.4 s RV AcT/ET 0.2 FINDINGS Left Ventricle Normal left ventricular size, systolic function and wall thickness, with no regional wall motion abnormalities. Grade I/IV diastolic dysfunction (abnormal relaxation filling pattern), normal to mildly elevated filling pressures. Left ventricular ejection fraction is estimated at 65%. Right Ventricle Normal right ventricular size and systolic function. Normal right ventricular systolic pressure. Right Atrium The right atrium is normal in size. Left Atrium The left atrium is normal in size. Mitral Valve Structurally normal mitral valve. Trace mitral valve regurgitation. Aortic Valve Structurally normal aortic valve without significant sclerosis or stenosis. There is no aortic regurgitation. Tricuspid Valve Structurally normal tricuspid valve. Trace tricuspid valve regurgitation. Pulmonic Valve Pulmonic valve not well visualized. Pericardium Normal pericardium without effusion. Left pleural effusion. Aorta Normal ascending aorta dimension. IVC Inferior vena cava not visualized. CONCLUSIONS Normal left ventricular size, systolic function and wall thickness, with no regional wall motion abnormalities. Grade I/IV diastolic dysfunction (abnormal relaxation filling pattern), normal to mildly elevated filling pressures. Left ventricular ejection fraction is estimated at 65%. Structurally normal mitral valve. Trace mitral valve regurgitation. Normal pericardium without effusion. Left pleural effusion. There are no prior echocardiogram studies to compare. Dr. Gentry Malhotra MD (Electronically Signed) Final Date: 28 June 2022 07:43 S
[2022-06-28 00:53] LABS: Glucose Point of Care 226 mg/dL (70-110)
[2022-06-28] MEDS: sodium chloride 0.9% 1,000 ML 75 ML IV (01:00)
[2022-06-28] MEDS: cefTRIAXone 1,000 MG in sodium chloride 0.9% (plus) 50 ML 100 MG IV ×2 (01:00→23:44)
[2022-06-28] MEDS: insulin lispro 100 unit/1 mL SUBCUT ×3 (01:08→23:45)
[2022-06-28] MEDS: insulin glargine 100 units/1 mL 5 UNIT SUBCUT ×2 (01:08→21:12)
[2022-06-28] MEDS: pantoprazole DR 40 mg Tablet PO ×2 (01:11→10:42)
[2022-06-28] MEDS: aspirin 81 mg EC Tablet 162 MG PO ×2 (01:11→10:42)
[2022-06-28 01:23] LABS: D Dimer 1.42 ug/mIFEU (0-0.59)
[2022-06-28 01:27] LABS: Ketone (Acetest) Serum Negative (Negative); Troponin 5 6HR 33.81 ng/L (0-10)
[2022-06-28 01:31] LABS: Troponin 5 6HR Delta -7.19 ng/L (0-12)
[2022-06-28 01:32] LABS: Creatine Phosphokinase 271 U/L (26-192)
[2022-06-28] MEDS: ipratropium-albuterol 3 mL Neb INHALATION ×7 (01:34→23:10)
[2022-06-28] MEDS: propofol 1,000 MG/100 ML INJ 33.53 MG IV (01:39)
[2022-06-28 01:46] LABS: Basophils # 0.1 10^3/uL (0.0-0.1); Basophils % 0.5 %; Eosinophils % 0.1 %; Hematocrit 32.4 % (37.0-47.0); Hemoglobin 9.3 g/dL (11.5-15.3); Lymphocytes # 0.6 10^3/uL (0.8-4.8); Mean Corpuscular HGB Conc 28.7 g/dL (30.0-36.0); Mean Corpuscular Hemoglobin 22.4 pg (28.0-34.0); Mean Corpuscular Volume 78.1 fl (81-99); Monocytes # 0.3 10^3/uL (0.2-0.9); Monocytes % 3.4 %; Neutrophils # 9.03 10^3/uL (1.8-7.7); Neutrophils % 89.6 %; Nucleated Red Blood Cells % 0 %; Platelet Count 216 10^3/cmm (130-400); Red Blood Count 4.15 10^6/uL (4.1-5.3); Red Cell Distribution Width 19.4 % (12.1-15.1); White Blood Count 10.1 10^3/uL (4.0-10.0)
[2022-06-28 01:59] LABS: Alanine Aminotransferase 18 U/L (0-33); Albumin Level 2.9 g/dL (3.5-5.2); Alkaline Phosphatase 140 U/L (35-105); Anion Gap 25.3 (5-19); Aspartate Amino Transferase 24 U/L (0-32); Blood Urea Nitrogen 52 mg/dL (6-20); Calcium 9.4 mg/dL (8.5-10.5); Carbon Dioxide 15 mmol/L (22-29); Chloride 99 mmol/L (98-107); Globulin 4.7 g/dL (1.3-4.6); Glomerular Filtration Rate 12.9 mL/min (90-130); Glucose 218 mg/dL (65-115); Osmolality Calculated 301 mOsm/kg (285-295); Potassium 4.3 mmol/L (3.5-5.1); Sodium 135 mmol/L (136-145); Total Bilirubin 0.2 mg/dL (0.15-1.2); Total Protein 7.6 g/dL (6.6-8.7)
--- NOTE | 2022-06-28 02:22 | PC.PHAR ---
Vancomycin is dosed at 1250mg IVPB every 48 hours to produce a predicted trough level of 17.04 (population based pharmacokinetic analysis). A trough level has been ordered from the lab to be obtained before the third dose to confirm and adjust if needed.
[2022-06-28 02:24] LABS: Estmated Average Glucose 140; Hemoglobin A1C 6.5 % (4.0-6.0)
[2022-06-28] MEDS: vancomycin 1,250 MG/250 ML PIGGYBACK 250 MG IV (02:38)
[2022-06-28 03:27] LABS: Adenovirus Not Detected (NOT DETECT); Chlamydia Pneumoniae Not Detected (NOT DETECT); Coronavirus 229E,HKU1,NL63,OC4 Not Detected (NOT DETECT); Human Metapneumovirus Not Detected (NOT DETECT); Human Rhinovirus/Enterovirus Not Detected (NOT DETECT); Influenza A Not Detected (NOT DETECT); Influenza A H1 Not Detected (NOT DETECT); Influenza A H1-2009 Not Detected (NOT DETECT); Influenza A H3 Not Detected (NOT DETECT); Influenza B Not Detected (NOT DETECT); Mycoplasma Pneumoniae Not Detected (NOT DETECT); Parainfluenza Virus Type 1 Not Detected (NOT DETECT); Parainfluenza Virus Type 2 Not Detected (NOT DETECT); Parainfluenza Virus Type 3 Not Detected (NOT DETECT); Parainfluenza Virus Type 4 Not Detected (NOT DETECT); Respiratory Syncytial Virus A Not Detected (NOT DETECT); Respiratory Syncytial Virus B Not Detected (NOT DETECT); SARS-COV-2 Not Detected (NOT DETECT)
[2022-06-28] MEDS: propofol 1,000 MG/100 ML INJ 28.74 MG IV ×2 (04:54→11:35)
[2022-06-28] MEDS: budesonide 0.5 mg/2 mL Neb 0.25 MG INHALATION ×2 (07:21→19:33)
--- NOTE | 2022-06-28 07:51 | P.PN_ITS ---
Subjective Subjective: Patient was seen and examined this morning currently intubated sedated on mechanical ventilation. Serum creatinine is improving, total documented urine output is 1.2 Ls.Has been afebrile. Her other vitals and labs have been reviewed. Medications: Medication Review Details: Generic Name Dose Route Start Last Admin Trade Name Cira PRN Reason Stop Dose Admin Albuterol/Ipratrop ium 3 ml 06/28/22 00:33 06/28/22 07:21 Ipratropium-Albu terol 3 Ml Neb INHALATION 3 ml Q4H.RESPIRATORY S CH Administration Aspirin 162 mg 06/28/22 00:33 06/28/22 01:11 Aspirin 81 Mg Ec Tablet PO 162 mg DAILY CORY Administration Budesonide 0.25 mg 06/28/22 08:00 06/28/22 07:21 Budesonide 0.5 M g/2 Ml Neb INHALATION 0.25 mg BID.RESPIRATORY S CH Administration Propofol 1,000 mg in 100 m ls @ 0 mls/hr 06/27/22 18:30 06/28/22 04:54 Diprivan IV 60 mcg/kg/min .Q0M CORY 28.74 mls/hr Administration Protocol Per Protocol Fentanyl 1,000 mcg / Sodium 100 mls @ 0 mls/h r 06/27/22 23:45 06/28/22 00:10 Chloride IV 25 mcg/hr .Q0M CORY 2.5 mls/hr Administration Protocol Per Protocol Sodium Chloride 1,000 mls @ 75 ml s/hr 06/28/22 00:33 06/28/22 01:00 Sodium Chloride 0.9% IV 75 mls/hr .[id number] CORY Administration Ceftriaxone Sodium 1,000 mg/ 50 mls @ 100 mls/ hr 06/28/22 00:33 06/28/22 01:40 Sodium Chloride IV Infused Q24H CORY Infusion Protocol Vancomycin/PEG/NAD A/Lysine/Water 1,250 mg in 250 m ls @ 250 mls/hr 06/28/22 02:30 06/28/22 04:00 Vancocin IV Infused Q48H CORY Infusion Insulin Glargine 5 unit 06/28/22 00:33 06/28/22 01:08 Insulin Glargine 100 Units/1 Ml SUBCUT 5 unit BEDTIME CORY Administration Insulin Human Lisp ro 0 unit 06/28/22 00:33 06/28/22 01:08 Insulin Lispro 1 00 Unit/1 Ml SUBCUT 6 unit Q8H CORY Administration Protocol Methylprednisolone Sodium Succinate 40 mg 06/28/22 00:33 06/28/22 05:58 Methylprednisolo ne Sod Succ 40 Mg/ Ml Inj IVP 40 mg Q6H CORY Administration Pantoprazole Sodiu m 40 mg 06/28/22 00:33 06/28/22 01:[address] 40 Mg Tablet PO 40 mg DAILY CORY Administration Vitals/I&O/Wt Last Vital Signs Temp 98.0 F 06/28/22 05:17 Pulse 100 06/28/22 07:23 Resp 18 06/28/22 07:23 BP 138/65 06/28/22 04:45 Pulse Ox 96 06/28/22 07:23 O2 Del Method 06/28/22 07:23 FiO2 35 06/28/22 07:23 06/27/22 06/28/22 06/28/22 22:59 06:59 14:59 Intake Total 9.024 / 9.024 1547.897 / 1556.921 Output Total 575 / 575 Balance 9.024 / 9.024 972.897 / 981.921 Weight last 48 hrs Weight 76.657 kg Weight 77.337 kg Weight 79.832 kg Physical Exam Narrative: Intubated sedated on mechanical ventilation Resp: COMMON NORMALS: clear to auscultation bilaterally AUSCULTATION: clear to auscultation bilaterally OTHER: Diminished air entry bilaterally Cardio: COMMON NORMALS: regular rate, regular rhythm, S1 normal heart sound present, S2 normal heart sound present, No gallops present (Cardio), No murmurs present (Cardio), No rub (Cardio) and Peripheral pulses 2+ throughout RATE: regular rate RHYTHM: regular rhythm HEART SOUNDS: S1 normal heart sound present and S2 normal heart sound present PERIPHERAL PULSES: Peripheral pulses 2+ throughout GI: COMMON NORMALS: Normal to inspection, nondistended, normoactive bowel sounds present, Soft to palpation, non-tender, No hepatosplenomegaly present and no masses AUSCULTATION: Yes normoactive bowel sounds PALPATION: Yes Soft to palpation and Yes No hepatosplenomegaly present RECTAL EXAM: deferred Extremity: COMMON NORMALS: no clubbing, cyanosis or edema and no pedal edema Urinary Catheter Management: [facility]: Cath Placed During This Visit: yes Reason for Continuing Indwelling Catheter: Accurate Measurement of Urinary Output in Critically Ill Patients Urinary Catheter Date of Insertion: 06/27/22 Urinary Catheter Time of Insertion: 20:05 Data : 06/28/22 00:36 06/28/22 09:25 Micro: Microbiology 06/27/22 18:25 Blood Culture - Preliminary Blood SPECIMEN COLLECTED 06/27/22 18:27 Blood Culture - Preliminary Blood SPECIMEN COLLECTED A&P Assessment and plan (1) Acute respiratory failure with hypoxemia: Intubated in the field due to respiratory distress, with suspected COPD, asthma exacerbation, with diminished air entry, sounding tight in ER. Received breathing treatment, Solu-Medrol. Continue Solu-Medrol, breathing treatments, empiric antibiotic with ceftriaxone. For now empirically vancomycin as well. Does not appear to have focal pneumonia. Collect sputum culture. Will assess COVID-19 PCR. Check D-dimer. Complete troponin EKG series. Assess TTE. Continue mechanical ventilatory support, currently restless, pulling on life support equipment, required escalation of sedation. (2) Acute encephalopathy: Unclear etiology of acute encephalopathy, with altered mental status today. Daughter reports she had been more short of breath and having to use her nebulizer more often today. Otherwise has been complaining of chronic dizzin ess. Discussed with her daughter regarding finding of old lacunar infarct on CT head. Daughter states that she was saying incomprehensible things when her brother had arrived to see her. It is difficult to say if this is secondary to encephalopathy, or whether CVA may have been a component. Discussed further evaluation with CT angiogram head and neck discussed risk of contrast nephropathy given also already having DANIEL. She would otherwise be out side the window for tPA. Certainly difficulty with permissive hypertension given she is intubated, requiring sedation as she is currently waking up, restless in bed. We will add NS infusion. Monitor blood pressure. Hold antihypertensives. Additionally possible acute encephalopathy secondary to medication, possibly baclofen, possibly in setting of DANIEL, or possible other causes. Follow-up UDS as well. If oxygenation improving, able to wean down sedation and reassess mental status. (3) Aphasia: As above, question of possible aphasia, versus encephalopathy/AMS. Further assessment with CTA head and neck. Mental status reassessment as soon as respiratory status improving. With known prior CVA will need further optimization of risk factors going forward. With improving from acute condition, when able to would benefit from MRI. (4) Cerebrovascular accident, old: She has known hypertension, appears also to be hyperglycemic, daughter is not aware of history of diabetes, although her sister had recently been diagnosed with diabetes. Will check A1c. She is a smoker, and will need to stop smoking. Would also discontinue meloxicam due to risk of CVA, avoid NSAIDs. Assess TTE Monitor on telemetry. Add aspirin, continue statin. (5) Acute exacerbation of chronic obstructive airways disease: As above (6) Asthma exacerbation: As above (7) Acute kidney injury: Unclear etiology, but does take NSAIDs, also losartan, HCTZ. No obstructive nephropathy noted on CT. Will give gentle fluid challenge. Reassess renal function. It is unclear whether this is progression of CKD with hypertensive nephropathy, with hyperglycemia question of diabetic nephropathy, versus DANIEL. Last renal function we have is from 2018 when creatinine was 1.1. Check CK. (8) Dizziness: Reported chronic dizziness, her primary doctor thought may be related to long COVID. Additional assessment as above. May benefit from MRI to assess for any cerebellar/central cause of dizziness. (9) Hyperkalemia: Hold losartan. Reassess potassium, renal function. (10) Transaminitis: Minimal elevation of AST, 38. Check CK. Check COVID-19 PCR. Follow-up liver parameters. Consider further investigation depending on levels. (11) Troponin level elevated: Abnormal troponin level, does not appear to have rising trend. No reported complaints of chest pain. EKG without obvious acute ischemia. Suspect secondary to demand ischemia, however, does have risk factors of CAD as well, and at some point later on would benefit from further risk stratification, and long-term risk factor optimization. Needs to quit smoking. (12) Hyperglycemia: Assess A1c. We will give low-dose Lantus, sliding scale insulin. (13) Ketonuria: Does not have diagnosis of diabetes, but quite hyperglycemic. Check serum ketones. Start Lantus 5 units, sliding scale insulin. Reassess chemistries. (14) Smoking addiction: Encourage cessation Plan 57-year-old female with past medical history of hypertension asthma COPD, was brought in with chief complaint of altered mental status, according to patient's daughter, her mother has been recently more short of breath, and has been using her nebulizer more than needed. Patient is currently being managed for. Assessment: Acute respiratory failure with hypoxia and hypercapnia possibly secondary to COPD asthma exacerbation Likely prerenal DANIEL on CKD: With possible contribution from NSAID, losartan HCTZ. Elevated troponin likely type II NSTEMI Altered mental status likely secondary to hypercapnic/hypoxic, DANIEL respiratory failure History of hypertension History of COPD History of asthma Hyperkalemia resolved Newly diagnosed diabetes Plan: CT chest abdomen and pelvis without contrast: No acute finding CT head without contrast: No acute intracranial pathology 2D echo: Normal left ventricular size, systolic function and wall ?thickness, with no regional wall motion abnormalities. Grade ?I/IV diastolic dysfunction (abnormal relaxation filling pattern), normal to mildly elevated filling pressures. Left ?ventricular ejection fraction is estimated at 65%. Structurally normal mitral valve. Trace mitral valve regurgitation. ?Normal pericardium without effusion.Left pleural effusion. Blood culture MRCA PCR : COVID PCR negative Lactic acid normal HbA1c: 6.5 EKG:; No acute ST-T wave changes ABG x-ray chest have been reviewed Monitor BMP Fena UPCR Random urine sodium Random urine creatinine Random urine protein Avoid nephrotoxic's Monitor intake output charting Monitor electrolytes, continue to hold losartan and hydrochlorothiazide Continue gentle IV hydration Patient is empirically on Vanco and ceftriaxone, clinical suspicion for pneumon ia is low, no consolidation, no effusion, noted on CT chest. For now we will continue with the antibiotics, will plan to de-escalate soon. Continue Solu-Medrol twice daily DuoNebs budesonide inhaler, Continue Lantus, SSI, plan to discharge patient on oral hypoglycemics, monitor fingerstick glucose Continue aspirin and statin For now we will initiate amlodipine 10 mg p.o. daily: We will continue to hold losartan and hydrochlorothiazide CODE STATUS full code DVT prophylaxis on SC heparin Attestations Medical Necessity Statement*: Patient is to be in hospital for management of respiratory failure. Time Spent in Patient Care: Greater than 35 minutes (>than 50% of time spent in counselling and/or direct pt care on unit) . Critical Care Time: The high probability of a clinically significant, sudden or life threatening deterioration of the patient's [] system(s) required my full and direct attention, intervention and personal management. The critical care time is as shown. This time is in addition to time spent performing any reported procedures but includes the following: [x] Data and vital sign review and interpretation [x] Patient assessment, examination and intervention [x] Documentation [x] Medication orders and management Critical Care Time (min): 50 Coding Level of Care Code Acute Entry Level Manager for Chg Fwd Exam Expanded Problem Focused Diagnoses Acute respiratory failure with hypoxemia J96.01 Acute encephalopathy G93.40 Aphasia R47.01 Cerebrovascular accident, old Z86.73 Acute exacerbation of chronic obstructive airways disease J44.1 Asthma exacerbation J45.901 Acute kidney injury N17.9 Dizziness R42 Hyperkalemia E87.5 Transaminitis R74.01 Troponin level elevated R77.8 Hyperglycemia R73.9 Ketonuria R82.4 Smoking addiction F17.200
[2022-06-28] MEDS: propofol 1,000 MG/100 ML INJ 31.13 MG IV (08:05)
[2022-06-28 08:28] LABS: Glucose Point of Care 183 mg/dL (70-110)
[2022-06-28 09:58] LABS: Blood Urea Nitrogen 52 mg/dL (6-20); Calcium 9.3 mg/dL (8.5-10.5); Carbon Dioxide 19 mmol/L (22-29); Chloride 103 mmol/L (98-107); Glucose 181 mg/dL (65-115); Osmolality Calculated 303 mOsm/kg (285-295); Sodium 137 mmol/L (136-145)
[2022-06-28] MEDS: sodium chloride 0.9% 1,000 ML 100 ML IV ×2 (12:37→22:41)
[2022-06-28 13:07] LABS: ABG PCO2 41.5 mmHg (35-45); ABG PH Result 7.32 (7.35-7.45); Alveolar-Arterial Oxygen Gradi 11.3 mmHg (5-10); Arterial Blood Gas Hematocrit 27.8 % (37-47); Base Excess ABG -4.2 mmol/L (-2.0-2.0); Blood Gas Allen Test Pos; Blood Gas Operator Identificat MONRO; Blood Gas Sample Site Brachial, right; Blood Gas Sample Type Arterial; Carboxyhemoglobin 1.1 %THgb (0.4-20.1); HCO3 ABG 21.5 mmol/L (22-26); Ionized Calcium Level - ABG 1.3 mmol/L (1.1-1.4); Oxygen Device VENT; Potassium Level - ABG 3.6 mmol/L (3.5-5.0); Total Hemoglobin 9.1 g/dL (12-16)
--- NOTE | 2022-06-28 13:30 | PC.NURSE ---
Verbal orders from Dr. Sharif to decrease sedation and evaluate for extubation today. See MAR for titration.
[2022-06-28] MEDS: heparin 5,000 unit/mL INJ 1 mL 5000 UNIT SUBCUT ×2 (13:33→23:44)
[2022-06-28] MEDS: amlodipine 5 mg Tablet PO (14:34)
[2022-06-28] MEDS: propofol 1,000 MG/100 ML INJ 26.35 MG IV (15:11)
[2022-06-28] MEDS: dexmedeTOMIDine 0.9 % NaCL 400 MCG/100 ML PREMIX IV (15:36)
[2022-06-28 17:09] LABS: Glucose Point of Care 121 mg/dL (70-110)
[2022-06-28] MEDS: propofol 1,000 MG/100 ML INJ 38.32 MG IV ×3 (18:03→23:42)
[2022-06-28] MEDS: atorvastatin 40 mg Tablet 20 MG PO (18:03)
[2022-06-28] MEDS: dexmedeTOMIDine 0.9 % NaCL 400 MCG/100 ML PREMIX 19.16 MCG IV (21:02)
[2022-06-28 21:16] LABS: Glucose Point of Care 185 mg/dL (70-110)
[2022-06-29] VITALS (90 sets, daily range): BP systolic 93–164; BP diastolic 61–104; PULSE 72–130; RESP 15–43; TEMP 37–37.5; O2SAT 74–100
[2022-06-29] LABS: Glucose Point of Care 200 mg/dL (70-110)
[2022-06-29] MEDS: dexmedeTOMIDine 0.9 % NaCL 400 MCG/100 ML PREMIX 19.16 MCG IV (01:01)
[2022-06-29] MEDS: propofol 1,000 MG/100 ML INJ 28.74 MG IV (02:33)
[2022-06-29] MEDS: ipratropium-albuterol 3 mL Neb INHALATION ×5 (03:18→19:47)
[2022-06-29 04:11] LABS: ABG PCO2 39.3 mmHg (35-45); ABG PH Result 7.34 (7.35-7.45); Alveolar-Arterial Oxygen Gradi 10.2 mmHg (5-10); Arterial Blood Gas Hematocrit 28.8 % (37-47); Base Excess ABG -4.1 mmol/L (-2.0-2.0); Blood Gas Allen Test Pos; Blood Gas Operator Identificat JB; Blood Gas Sample Site Radial, right; Blood Gas Sample Type Arterial; HCO3 ABG 21.3 mmol/L (22-26); HGB O2 Sat 94.6 % (95-100); Ionized Calcium Level - ABG 1.3 mmol/L (1.1-1.4); Methemoglobin 1.2 % (0.4-1.5); Oxygen Device VENT; Oxygen Saturation ABG 96.7; PO2 ABG 84.7 mmHg (80.0-100.0); Potassium Level - ABG 3.9 mmol/L (3.5-5.0); Total Hemoglobin 9.4 g/dL (12-16)
[2022-06-29 04:34] LABS: Basophils % 0.1 %; Hematocrit 27.3 % (37.0-47.0); Hemoglobin 8.1 g/dL (11.5-15.3); Lymphocytes # 0.6 10^3/uL (0.8-4.8); Lymphocytes % 8.1 %; Mean Corpuscular HGB Conc 29.7 g/dL (30.0-36.0); Mean Corpuscular Hemoglobin 22.2 pg (28.0-34.0); Mean Corpuscular Volume 74.8 fl (81-99); Mean Platelet Volume 11.3 fL (7.4-10.4); Monocytes # 0.6 10^3/uL (0.2-0.9); Monocytes % 8.4 %; Neutrophils # 5.94 10^3/uL (1.8-7.7); Neutrophils % 83.1 %; Nucleated Red Blood Cells % 0 %; Platelet Count 216 10^3/cmm (130-400); Red Blood Count 3.65 10^6/uL (4.1-5.3); Red Cell Distribution Width 19.8 % (12.1-15.1); White Blood Count 7.2 10^3/uL (4.0-10.0)
[2022-06-29 05:04] LABS: Alanine Aminotransferase 14 U/L (0-33); Albumin Level 2.8 g/dL (3.5-5.2); Alkaline Phosphatase 114 U/L (35-105); Anion Gap 17.1 (5-19); Aspartate Amino Transferase 15 U/L (0-32); Blood Urea Nitrogen 47 mg/dL (6-20); Calcium 9.2 mg/dL (8.5-10.5); Carbon Dioxide 20 mmol/L (22-29); Chloride 107 mmol/L (98-107); Globulin 3.8 g/dL (1.3-4.6); Glomerular Filtration Rate 25.5 mL/min (90-130); Glucose 154 mg/dL (65-115); Osmolality Calculated 305 mOsm/kg (285-295); Potassium 4.1 mmol/L (3.5-5.1); Sodium 140 mmol/L (136-145); Total Bilirubin 0.2 mg/dL (0.15-1.2); Total Protein 6.6 g/dL (6.6-8.7)
[2022-06-29] MEDS: propofol 1,000 MG/100 ML INJ 14.37 MG IV (06:18)
[2022-06-29] MEDS: budesonide 0.5 mg/2 mL Neb 0.25 MG INHALATION ×2 (07:35→19:47)
[2022-06-29 08:20] LABS: Glucose Point of Care 134 mg/dL (70-110)
[2022-06-29] MEDS: pantoprazole DR 40 mg Tablet PO (08:26)
[2022-06-29] MEDS: amlodipine 10 mg Tablet PO (08:26)
[2022-06-29] MEDS: aspirin 81 mg EC Tablet PO (08:26)
[2022-06-29] MEDS: sodium chloride 0.9% 1,000 ML 100 ML IV (08:34)
--- NOTE | 2022-06-29 12:35 | PM.PN ---
Subjective Subjective: Patient was seen and examined this morning, successfully extubated today, postextubation she has done well on 2 Ls oxygen, though after extubation she was slightly disoriented, she is slowly coming around. Medications: Medication Review Details: Generic Name Dose Route Start Last Admin Trade Name Cira PRN Reason Stop Dose Admin Albuterol/Ipratrop ium 3 ml 06/28/22 00:33 06/29/22 12:14 Ipratropium-Albu terol 3 Ml Neb INHALATION 3 ml Q4H.RESPIRATORY S CH Administration Amlodipine Besylat e 10 mg 06/29/22 09:00 06/29/22 08:26 Amlodipine 10 Mg Tablet PO 10 mg DAILY CORY Administration Aspirin 81 mg 06/29/22 09:00 06/29/22 08:26 Aspirin 81 Mg Ec Tablet PO 81 mg DAILY CORY Administration Atorvastatin Calci um 20 mg 06/28/22 18:00 06/28/22 18:03 Atorvastatin 40 Mg Tablet PO 20 mg QPM CORY Administration Budesonide 0.25 mg 06/28/22 08:00 06/29/22 07:35 Budesonide 0.5 M g/2 Ml Neb INHALATION 0.25 mg BID.RESPIRATORY S CH Administration Heparin Sodium (Po rcine) 5,000 unit 06/28/22 12:45 06/28/22 23:44 Heparin 5,000 Un it/Ml Inj 1 Ml SUBCUT 5,000 unit Q12H CORY Administration Propofol 1,000 mg in 100 m ls @ 0 mls/hr 06/27/22 18:30 06/29/22 06:18 Diprivan IV 30 mcg/kg/min .Q0M CORY 14.37 mls/hr Administration Protocol Per Protocol Fentanyl 1,000 mcg / Sodium 100 mls @ 0 mls/h r 06/27/22 23:45 06/28/22 14:38 Chloride IV 0 mcg/hr .Q0M CORY 0 mls/hr Titration Protocol Per Protocol Ceftriaxone Sodium 1,000 mg/ 50 mls @ 100 mls/ hr 06/28/22 00:33 06/29/22 01:02 Sodium Chloride IV Infused Q24H CORY Infusion Protocol Vancomycin/PEG/NAD A/Lysine/Water 1,250 mg in 250 m ls @ 250 mls/hr 06/28/22 02:30 06/28/22 04:00 Vancocin IV Infused Q48H CORY Infusion Sodium Chloride 1,000 mls @ 100 m ls/hr 06/28/22 12:30 06/29/22 08:34 Sodium Chloride 0.9% IV 100 mls/hr .Q10H CORY Administration Dexmedetomidine/So dium Chloride 400 mcg in 100 ml s @ 0 mls/hr 06/28/22 15:15 06/29/22 05:00 Precedex IV 1.2 mcg/kg/hr .Q0M CORY 23 mls/hr Titration Protocol Per Protocol Insulin Glargine 5 unit 06/28/22 00:33 06/28/22 21:12 Insulin Glargine 100 Units/1 Ml SUBCUT 5 unit BEDTIME CORY Administration Insulin Human Lisp ro 0 unit 06/28/22 00:33 06/29/22 08:23 Insulin Lispro 1 00 Unit/1 Ml SUBCUT Not Given Q8H CORY Protocol Methylprednisolone Sodium Succinate 60 mg 06/28/22 18:00 06/29/22 05:09 Methylprednisolo ne Sod Succ 125 Mg /2 Ml Inj IVP 60 mg Q12H CORY Administration Pantoprazole Sodiu m 40 mg 06/28/22 00:33 06/29/22 08:[address] 40 Mg Tablet PO 40 mg DAILY CORY Administration Vitals/I&O/Wt Last Vital Signs Temp 99.5 F 06/29/22 09:00 Pulse 119 H 06/29/22 12:00 Resp 29 H 06/29/22 09:34 BP 145/84 06/29/22 12:00 Pulse Ox 93 06/29/22 12:00 O2 Del Method 06/29/22 09:00 FiO2 30 06/29/22 09:34 06/28/22 06/29/22 06/29/22 22:59 06:59 14:59 Intake Total 1271.411 / 2450.924 506.350 / 2957.274 1108.333 / 1108.333 Output Total 300 / 950 1000 / 1950 200 / 200 Balance 971.411 / 1500.924 -493.650 / 1007.274 908.333 / 908.333 Weight last 48 hrs Weight 83 kg Weight 76.657 kg Weight 77.337 kg Weight 79.832 kg Physical Exam Narrative: Alert awake Resp: COMMON NORMALS: clear to auscultation bilaterally AUSCULTATION: clear to auscultation bilaterally OTHER: Diminished air entry bilaterally Cardio: COMMON NORMALS: regular rate, regular rhythm, S1 normal heart sound present, S2 normal heart sound present, No gallops present (Cardio), No murmurs present (Cardio), No rub (Cardio) and Peripheral pulses 2+ throughout RATE: regular rate RHYTHM: regular rhythm HEART SOUNDS: S1 normal heart sound present and S2 normal heart sound present PERIPHERAL PULSES: Peripheral pulses 2+ throughout GI: COMMON NORMALS: Normal to inspection, nondistended, normoactive bowel sounds present, Soft to palpation, non-tender, No hepatosplenomegaly present and no masses AUSCULTATION: Yes normoactive bowel sounds PALPATION: Yes Soft to palpation and Yes No hepatosplenomegaly present RECTAL EXAM: deferred Extremity: COMMON NORMALS: no clubbing, cyanosis or edema and no pedal edema Urinary Catheter Management: [facility]: Cath Placed During This Visit: yes Reason for Continuing Indwelling Catheter: Accurate Measurement of Urinary Output in Critically Ill Patients Urinary Catheter Date of Insertion: 06/27/22 Urinary Catheter Time of Insertion: 20:05 Data : 06/29/22 04:20 06/29/22 04:20 Micro: Microbiology 06/27/22 18:25 Blood Culture - Preliminary Blood NEGATIVE TO DATE 06/27/22 18:27 Blood Culture - Preliminary Blood NEGATIVE TO DATE A&P Assessment and plan (1) Acute respiratory failure with hypoxemia: Intubated in the field due to respiratory distress, with suspected COPD, asthma exacerbation, with diminished air entry, sounding tight in ER. Received breathing treatment, Solu-Medrol. Continue Solu-Medrol, breathing treatments, empiric antibiotic with ceftriaxone. For now empirically vancomycin as well. Does not appear to have focal pneumonia. Collect sputum culture. Will assess COVID-19 PCR. Check D-dimer. Complete troponin EKG series. Assess TTE. Continue mechanical ventilatory support, currently restless, pulling on life support equipment, required escalation of sedation. (2) Acute encephalopathy: Unclear etiology of acute encephalopathy, with altered mental status today. Daughter reports she had been more short of breath and having to use her nebulizer more often today. Otherwise has been complaining of chronic dizziness. Discussed with her daughter regarding finding of old lacunar infarct on CT head. Daughter states that she was saying incomprehensible things when her brother had arrived to see her. It is difficult to say if this is secondary to encephalopathy, or whether CVA may have been a component. Discussed further evaluation with CT angiogram head and neck discussed risk of contrast nephropathy given also already having DANIEL. She would otherwise be out side the window for tPA. Certainly difficulty with permissive hypertension given she is intubated, requiring sedation as she is currently waking up, restless in bed. We will add NS infusion. Monitor blood pressure. Hold antihypertensives. Additionally possible acute encephalopathy secondary to medication, possibly baclofen, possibly in setting of DANIEL, or possible other causes. Follow-up UDS as well. If oxygenation improving, able to wean down sedation and reassess mental status. (3) Aphasia: As above, question of possible aphasia, versus encephalopathy/AMS. Further assessment with CTA head and neck. Mental status reassessment as soon as respiratory status improving. With known prior CVA will need further optimization of risk factors going forward. With improving from acute condition, when able to would benefit from MRI. (4) Cerebrovascular accident, old: She has known hypertension, appears also to be hyperglycemic, daughter is not aware of history of diabetes, although her sister had recently been diagnosed with diabetes. Will check A1c. She is a smoker, and will need to stop smoking. Would also discontinue meloxicam due to risk of CVA, avoid NSAIDs. Assess TTE Monitor on telemetry. Add aspirin, continue statin. (5) Acute exacerbation of chronic obstructive airways disease: As above (6) Asthma exacerbation: As above (7) Acute kidney injury: Unclear etiology, but does take NSAIDs, also losartan, HCTZ. No obstructive nephropathy noted on CT. Will give gentle fluid challenge. Reassess renal function. It is unclear whether this is progression of CKD with hypertensive nephropathy, with hyperglycemia question of diabetic nephropathy, versus DANIEL. Last renal function we have is from 2018 when creatinine was 1.1. Check CK. (8) Dizziness: Reported chronic dizziness, her primary doctor thought may be related to long COVID. Additional assessment as above. May benefit from MRI to assess for any cerebellar/central cause of dizziness. (9) Hyperkalemia: Hold losartan. Reassess potassium, renal function. (10) Transaminitis: Minimal elevation of AST, 38. Check CK. Check COVID-19 PCR. Follow-up liver parameters. Consider further investigation depending on levels. (11) Troponin level elevated: Abnormal troponin level, does not appear to have rising trend. No reported complaints of chest pain. EKG without obvious acute ischemia. Suspect secondary to demand ischemia, however, does have risk factors of CAD as well, and at some point later on would benefit from further risk stratification, and long-term risk factor optimization. Needs to quit smoking. (12) Hyperglycemia: Assess A1c. We will give low-dose Lantus, sliding scale insulin. (13) Ketonuria: Does not have diagnosis of diabetes, but quite hyperglycemic. Check serum ketones. Start Lantus 5 units, sliding scale insulin. Reassess chemistries. (14) Smoking addiction: Encourage cessation Plan 57-year-old female with past medical history of hypertension asthma COPD, was brought in with chief complaint of altered mental status, according to patient's daughter, her mother has been recently more short of breath, and has been using her nebulizer more than needed. Patient is currently being managed for. Assessment: Acute respiratory failure with hypoxia and hypercapnia possibly secondary to COPD asthma exacerbation Likely prerenal DANIEL on CKD: With possible contribution from NSAID, losartan HCTZ. Elevated troponin likely type II NSTEMI Altered mental status likely secondary to hypercapnic/hypoxic, DANIEL respiratory failure History of hypertension History of COPD History of asthma Hyperkalemia resolved Newly diagnosed diabetes Plan: CT chest abdomen and pelvis without contrast: No acute finding CT head without contrast: No acute intracranial pathology 2D echo: Normal left ventricular size, systolic function and wall ?thickness, with no regional wall motion abnormalities. Grade ?I/IV diastolic dysfunction (abnormal relaxation filling pattern), normal to mildly elevated filling pressures. Left ?ventricular ejection fraction is estimated at 65%. Structurally normal mitral valve. Trace mitral valve regurgitation. ?Normal pericardium without effusion.Left pleural effusion. Blood culture: NTD MRCA PCR : COVID PCR negative Lactic acid normal HbA1c: 6.5 EKG:; No acute ST-T wave changes ABG x-ray chest have been reviewed Monitor BMP Fena UPCR Random urine sodium Random urine creatinine Random urine protein Avoid nephrotoxic's Monitor intake output charting Monitor electrolytes, continue to hold losartan and hydrochlorothiazide Continue gentle IV hydration Patient is empirically on Vanco and ceftriaxone, clinical suspicion for pneumonia is low, no consolidation, no effusion, noted on CT chest. For now we will continue with the antibiotics, will plan to de-escalate soon. Continue Solu-Medrol twice daily DuoNebs budesonide inhaler, Continue Lantus, SSI, plan to discharge patient on oral hypoglycemics, monitor fingerstick glucose Continue aspirin and statin For now we will initiate amlodipine 10 mg p.o. daily: We will continue to hold losartan and hydrochlorothiazide CODE STATUS full code DVT prophylaxis on SC heparin Attestations Medical Necessity Statement*: Patient is to be in hospital management of DANIEL, COPD exacerbation. Time Spent in Patient Care: Greater than 35 minutes (>than 50% of time spent in counselling and/or direct pt care on unit). The high probability of a clinically significant, sudden or life threatening deterioration of the patient's [] system(s) required my full and direct attention, intervention and personal management. The critical care time is as shown. This time is in addition to time spent performing any reported procedures but includes the following: [x] Data and vital sign review and interpretation [x] Patient assessment, examination and intervention [x] Documentation [x] Medication orders and management Critical Care Time: Critical Care Time (min): 45 Coding Level of Care Code Acute Cold Reduction Roller for g Fwd Diagnoses Acute respiratory failure with hypoxemia J96.01 Acute encephalopathy G93.40 Aphasia R47.01 Cerebrovascular accident, old Z86.73 Acute exacerbation of chronic obstructive airways disease J44.1 Asthma exacerbation J45.901 Acute kidney injury N17.9 Dizziness R42 Hyperkalemia E87.5 Transaminitis R74.01 Troponin level elevated R77.8 Hyperglycemia R73.9 Ketonuria R82.4 Smoking addiction F17.200
--- NOTE | 2022-06-29 13:12 | PC.NURSE ---
Pt is hallucinating and rambling to a person in the corner of the room; thinks the window into the other room is a mirror. Frequently starts yelling at hallucinations. Currently yelling yes repeatedly towards the corner.
[2022-06-29 15:47] LABS: Amphetamines Screen Urine Positive (Negative); Barbiturates Screen Urine Negative (Negative); Benzodiazepines Screen Urine Negative (Negative); Cocaine Screen Urine Negative (Negative); Opiate Screen Urine Negative (Negative); PCP Screen Urine Negative (Negative); THC Screen Urine Negative (Negative)
[2022-06-29] MEDS: acetylcysteine 200 mg/mL SDV 4 mL 100 MG INHALATION ×2 (16:01→19:47)
[2022-06-29 16:16] LABS: Glucose Point of Care 150 mg/dL (70-110)
[2022-06-29] MEDS: insulin lispro 100 unit/1 mL SUBCUT (16:24)
[2022-06-29] MEDS: heparin 5,000 unit/mL INJ 1 mL 5000 UNIT SUBCUT (16:24)
[2022-06-29] MEDS: guaiFENesin 600 mg Tablet 1200 MG PO (17:09)
[2022-06-29] MEDS: atorvastatin 40 mg Tablet 20 MG PO (17:13)
[2022-06-29] MEDS: insulin glargine 100 units/1 mL 5 UNIT SUBCUT (20:01)
[2022-06-29 20:36] LABS: Glucose Point of Care 146 mg/dL (70-110)
[2022-06-29 20:54] LABS: Amphetamines Level POSITIVE ng/mL (<500); Barbiturates NEGATIVE ng/mL (<300); Benzodiazepines NEGATIVE ng/mL (<100); Cocaine Metabolite NEGATIVE ng/mL (<150); Marijuana Metabolite NEGATIVE ng/mL (<20); Methadone Metabolite NEGATIVE ng/mL (<100); Opiates NEGATIVE ng/mL (<100); Oxidant NEGATIVE mcg/mL (<200); Phencyclidine NEGATIVE ng/mL (<25); Urine pH 5.6 (4.5-9.0)
[2022-06-30] VITALS (25 sets, daily range): BP systolic 129–166; BP diastolic 77–99; PULSE 89–108; RESP 16–33; TEMP 36.9–37.2; O2SAT 87–97
[2022-06-30] MEDS: ipratropium-albuterol 3 mL Neb INHALATION ×5 (00:06→20:34)
[2022-06-30] MEDS: acetylcysteine 200 mg/mL SDV 4 mL 100 MG INHALATION ×5 (00:06→23:48)
[2022-06-30 00:21] LABS: Glucose Point of Care 230 mg/dL (70-110)
[2022-06-30] MEDS: insulin lispro 100 unit/1 mL SUBCUT ×3 (00:24→15:45)
[2022-06-30] MEDS: cefTRIAXone 1,000 MG in sodium chloride 0.9% (plus) 50 ML 100 MG IV (00:24)
[2022-06-30] MEDS: heparin 5,000 unit/mL INJ 1 mL 5000 UNIT SUBCUT ×2 (00:24→13:37)
[2022-06-30] MEDS: vancomycin 1,250 MG/250 ML PIGGYBACK 250 MG IV (03:31)
[2022-06-30 04:03] LABS: Basophils % 0.1 %; Hematocrit 28.6 % (37.0-47.0); Hemoglobin 8.5 g/dL (11.5-15.3); Lymphocytes # 0.8 10^3/uL (0.8-4.8); Lymphocytes % 7.4 %; Mean Corpuscular HGB Conc 29.7 g/dL (30.0-36.0); Mean Corpuscular Volume 74.1 fl (81-99); Monocytes # 0.8 10^3/uL (0.2-0.9); Neutrophils # 9.08 10^3/uL (1.8-7.7); Neutrophils % 84.9 %; Nucleated Red Blood Cells % 0 %; Platelet Count 202 10^3/cmm (130-400); Red Blood Count 3.86 10^6/uL (4.1-5.3); White Blood Count 10.7 10^3/uL (4.0-10.0)
[2022-06-30 04:25] LABS: Slide Review Slide Review Perform
[2022-06-30 04:26] LABS: Albumin Level 2.8 g/dL (3.5-5.2); Alkaline Phosphatase 125 U/L (35-105); Blood Urea Nitrogen 41 mg/dL (6-20); Calcium 9.4 mg/dL (8.5-10.5); Carbon Dioxide 23 mmol/L (22-29); Chloride 107 mmol/L (98-107); Globulin 4.3 g/dL (1.3-4.6); Glomerular Filtration Rate 30.8 mL/min (90-130); Glucose 97 mg/dL (65-115); Osmolality Calculated 304 mOsm/kg (285-295); Sodium 142 mmol/L (136-145); Total Bilirubin 0.2 mg/dL (0.15-1.2); Total Protein 7.1 g/dL (6.6-8.7)
[2022-06-30 04:27] LABS: Anion Gap 16.1 (5-19); Potassium 4.1 mmol/L (3.5-5.1)
[2022-06-30 04:28] LABS: Alanine Aminotransferase 21 U/L (0-33); Aspartate Amino Transferase 36 U/L (0-32)
[2022-06-30] MEDS: budesonide 0.5 mg/2 mL Neb 0.25 MG INHALATION ×2 (07:38→20:34)
[2022-06-30 08:08] LABS: Glucose Point of Care 191 mg/dL (70-110)
[2022-06-30] MEDS: thiamine 100 mg Tablet PO (08:15)
[2022-06-30] MEDS: amlodipine 10 mg Tablet PO (08:16)
[2022-06-30] MEDS: pantoprazole DR 40 mg Tablet PO (08:16)
[2022-06-30] MEDS: aspirin 81 mg EC Tablet PO (08:16)
[2022-06-30] MEDS: guaiFENesin 600 mg Tablet 1200 MG PO ×2 (08:16→17:51)
[2022-06-30 15:13] LABS: Glucose Point of Care 283 mg/dL (70-110)
--- NOTE | 2022-06-30 16:09 | PC.NURSE ---
Pt was transferred to [facility] at 1600 via wheelchair with all personal belongings and were placed in chair. Staff aware patient is in room.
--- NOTE | 2022-06-30 16:43 | PC.NURSE ---
Hien left on daughters phone informing her that patient was moved to [facility].
--- NOTE | 2022-06-30 17:39 | P.PN_ITS ---
Subjective Subjective: Patient was seen and examined this morning, saturating well on 2-3 ls oxygen via nc.Afebrile.Kidney function is improving. Medications: Medication Review Details: Generic Name Dose Route Start Last Admin Trade Name Cira PRN Reason Stop Dose Admin Acetylcysteine 100 mg 06/29/22 16:00 06/30/22 11:33 Acetylcysteine 2 00 Mg/Ml Sdv 4 Ml INHALATION 100 mg Q4H.RESPIRATORY S CH Administration Albuterol/Ipratrop ium 3 ml 06/28/22 00:33 06/30/22 15:41 Ipratropium-Albu terol 3 Ml Neb INHALATION 3 ml Q4H.RESPIRATORY S CH Administration Amlodipine Besylat e 10 mg 06/29/22 09:00 06/30/22 08:16 Amlodipine 10 Mg Tablet PO 10 mg DAILY CORY Administration Aspirin 81 mg 06/29/22 09:00 06/30/22 08:16 Aspirin 81 Mg Ec Tablet PO 81 mg DAILY CORY Administration Atorvastatin Calci um 20 mg 06/28/22 18:00 06/29/22 17:13 Atorvastatin 40 Mg Tablet PO 20 mg QPM CORY Administration Budesonide 0.25 mg 06/28/22 08:00 06/30/22 07:38 Budesonide 0.5 M g/2 Ml Neb INHALATION 0.25 mg BID.RESPIRATORY S CH Administration Guaifenesin 1,200 mg 06/29/22 18:00 06/30/22 08:16 Guaifenesin 600 Mg Tablet PO 1,200 mg BID CORY Administration Heparin Sodium (Po rcine) 5,000 unit 06/28/22 12:45 06/30/22 13:37 Heparin 5,000 Un it/Ml Inj 1 Ml SUBCUT 5,000 unit Q12H CORY Administration Ceftriaxone Sodium 1,000 mg/ 50 mls @ 100 mls/ hr 06/28/22 00:33 06/30/22 03:48 Sodium Chloride IV Infused Q24H CORY Infusion Protocol Insulin Human Lisp ro 0 unit 06/28/22 00:33 06/30/22 15:45 Insulin Lispro 1 00 Unit/1 Ml SUBCUT 8 unit Q8H CORY Administration Protocol Methylprednisolone Sodium Succinate 60 mg 06/28/22 18:00 06/30/22 05:16 Methylprednisolo ne Sod Succ 125 Mg /2 Ml Inj IVP 60 mg Q12H CORY Administration Pantoprazole Sodiu m 40 mg 06/28/22 00:33 06/30/22 08:[address] 40 Mg Tablet PO 40 mg DAILY CORY Administration Thiamine Mononitra te 100 mg 06/30/22 09:00 06/30/22 08:15 Thiamine 100 Mg Tablet PO 100 mg DAILY CORY Administration Vitals/I&O/Wt Last Vital Signs Temp 98.9 F 06/30/22 05:00 Pulse 95 06/30/22 15:43 Resp 16 06/30/22 15:30 BP 152/79 06/30/22 10:00 Pulse Ox 94 06/30/22 15:30 O2 Del Method 06/30/22 15:30 O2 Flow Rate 3 06/30/22 00:06 FiO2 30 06/29/22 09:34 06/30/22 06/30/22 06/30/22 06:59 14:59 22:59 Intake Total 300 / 1828.205 600 / 600 Output Total 1000 / 2200 1600 / 1600 Balance -700 / -371.795 600 / 600 -1600 / -1000 Weight last 48 hrs Weight 81 kg Weight 83 kg Physical Exam Narrative: Alert awake and oriented to self, person and place Resp: COMMON NORMALS: clear to auscultation bilaterally AUSCULTATION: clear to auscultation bilaterally OTHER: Diminished air entry bilaterally Cardio: COMMON NORMALS: regular rate, regular rhythm, S1 normal heart sound present, S2 normal heart sound present, No gallops present (Cardio), No murmurs present (Cardio), No rub (Cardio) and Peripheral pulses 2+ throughout RATE: regular rate RHYTHM: regular rhythm HEART SOUNDS: S1 normal heart sound present and S2 normal heart sound present PERIPHERAL PULSES: Peripheral pulses 2+ throughout GI: COMMON NORMALS: Normal to inspection, nondistended, normoactive bowel sounds present, Soft to palpation, non-tender, No hepatosplenomegaly present and no masses AUSCULTATION: Yes normoactive bowel sounds PALPATION: Yes Soft to palpation and Yes No hepatosplenomegaly present RECTAL EXAM: deferred Extremity: COMMON NORMALS: no clubbing, cyanosis or edema and no pedal edema Urinary Catheter Management: [facility]: Cath Placed During This Visit: yes Reason for Continuing Indwelling Catheter: Accurate Measurement of Urinary Output in Critically Ill Patients Urinary Catheter Date of Insertion: 06/27/22 Urinary Catheter Time of Insertion: 20:05 Data : 06/30/22 03:42 06/30/22 03:42 Micro: Microbiology 06/27/22 18:15 Sputum Culture - Final Sputum - Endotracheal Tube Aspirate Staphylococcus aureus 06/28/22 12:39 MRSA Culture - Final Nose A&P Assessment and plan (1) Acute respiratory failure with hypoxemia: Intubated in the field due to respiratory distress, with suspected COPD, asthma exacerbation, with diminished air entry, sounding tight in ER. Received breathing treatment, Solu-Medrol. Continue Solu-Medrol, breathing treatments, empiric antibiotic with ceftriaxone. For now empirically vancomycin as well. Does not appear to have focal pneumonia. Collect sputum culture. Will assess COVID-19 PCR. Check D-dimer. Complete troponin EKG series. Assess TTE. Continue mechanical ventilatory support, currently restless, pulling on life support equipment, required escalation of sedation. (2) Acute encephalopathy: Unclear etiology of acute encephalopathy, with altered mental status today. Daughter reports she had been more short of breath and having to use her nebulizer more often today. Otherwise has been complaining of chronic dizziness. Discussed with her daughter regarding finding of old lacunar infarct on CT head. Daughter states that she was saying incomprehensible things when her brother had arrived to see her. It is difficult to say if this is secondary to encephalopathy, or whether CVA may have been a component. Discussed further evaluation with CT angiogram head and neck discussed risk of contrast nephropathy given also already having DANIEL. She would otherwise be out side the window for tPA. Certainly difficulty with permissive hypertension given she is intubated, requiring sedation as she is currently waking up, restless in bed. We will add NS infusion. Monitor blood pressure. Hold antihypertensives. Additionally possible acute encephalopathy secondary to medication, possibly baclofen, possibly in setting of DANIEL, or possible other causes. Follow-up UDS as well. If oxygenation improving, able to wean down sedation and reassess mental status. (3) Aphasia: As above, question of possible aphasia, versus encephalopathy/AMS. Further assessment with CTA head and neck. Mental status reassessment as soon as respiratory status improving. With known prior CVA will need further optimization of risk factors going forward. With improving from acute condition, when able to would benefit from MRI. (4) Cerebrovascular accident, old: She has known hypertension, appears also to be hyperglycemic, daughter is not aware of history of diabetes, although her sister had recently been diagnosed with diabetes. Will check A1c. She is a smoker, and will need to stop smoking. Would also discontinue meloxicam due to risk of CVA, avoid NSAIDs. Assess TTE Monitor on telemetry. Add aspirin, continue statin. (5) Acute exacerbation of chronic obstructive airways disease: As above (6) Asthma exacerbation: As above (7) Acute kidney injury: Unclear etiology, but does take NSAIDs, also losartan, HCTZ. No obstructive nephropathy noted on CT. Will give gentle fluid challenge. Reassess renal function. It is unclear whether this is progression of CKD with hypertensive nephropathy, with hyperglycemia question of diabetic nephropathy, versus DANIEL. Last renal function we have is from 2018 when creatinine was 1.1. Check CK. (8) Dizziness: Reported chronic dizziness, her primary doctor thought may be related to long COVID. Additional assessment as above. May benefit from MRI to assess for any cerebellar/central cause of dizziness. (9) Hyperkalemia: Hold losartan. Reassess potassium, renal function. (10) Transaminitis: Minimal elevation of AST, 38. Check CK. Check COVID-19 PCR. Follow-up liver parameters. Consider further investigation depending on levels. (11) Troponin level elevated: Abnormal troponin level, does not appear to have rising trend. No reported complaints of chest pain. EKG without obvious acute ischemia. Suspect secondary to demand ischemia, however, does have risk factors of CAD as well, and at some point later on would benefit from further risk stratification, and long-term risk factor optimization. Needs to quit smoking. (12) Hyperglycemia: Assess A1c. We will give low-dose Lantus, sliding scale insulin. (13) Ketonuria: Does not have diagnosis of diabetes, but quite hyperglycemic. Check serum ketones. Start Lantus 5 units, sliding scale insulin. Reassess chemistries. (14) Smoking addiction: Encourage cessation Plan 57-year-old female with past medical history of hypertension asthma COPD, was brought in with chief complaint of altered mental status, according to patient's daughter, her mother has been recently more short of breath, and has been using her nebulizer more than needed. Patient is currently being managed for. Assessment: Acute respiratory failure with hypoxia and hypercapnia possibly secondary to COPD asthma exacerbation Likely prerenal DANIEL on CKD: With possible contribution from NSAID, losartan HCTZ. Elevated troponin likely type II NSTEMI Altered mental status likely secondary to hypercapnic/hypoxic, DANIEL respiratory failure/ Drug Use History of hypertension History of COPD History of asthma Hyperkalemia resolved Newly diagnosed diabetes Plan: CT chest abdomen and pelvis without contrast: No acute finding CT head without contrast: No acute intracranial pathology 2D echo: Normal left ventricular size, systolic function and wall ?thickness, with no regional wall motion abnormalities. Grade ?I/IV diastolic dysfunction (abnormal relaxation filling pattern), normal to mildly elevated filling pressures. Left ?ventricular ejection fraction is estimated at 65%. Structurally normal mitral valve. Trace mitral valve regurgitation. ?Normal pericardium without effusion.Left pleural effusion. Blood culture: NTD MRCA PCR : Negative Sputum culture :MSSA COVID PCR negative Lactic acid normal HbA1c: 6.5 EKG:; No acute ST-T wave changes ABG x-ray chest have been reviewed Monitor BMP Fena UPCR UTox : Positive for Amphetamine Random urine sodium Random urine creatinine Random urine protein Avoid nephrotoxic's Monitor intake output charting Monitor electrolytes, continue to hold losartan and hydrochlorothiazide Continue gentle IV hydration Patient is empirically on Vanco and ceftriaxone, clinical suspicion for pneumonia is low, no consolidation, no effusion, noted on CT chest. For now we will continue with the antibiotics, will plan to de-escalate soon. Continue Solu-Medrol twice daily DuoNebs budesonide inhaler, Continue Lantus, SSI, plan to discharge patient on oral hypoglycemics, monitor fingerstick glucose Continue aspirin and statin For now we will initiate amlodipine 10 mg p.o. daily: We will continue to hold losartan and hydrochlorothiazide CODE STATUS full code DVT prophylaxis on SC heparin Attestations Medical Necessity Statement*: patient needs to be in hospital for the management of r/f Time Spent in Patient Care: Greater than 35 minutes (>than 50% of time spent in counselling and/or direct pt care on unit) . Coding Level of Care Code Acute [employer] for [employer] Diagnoses Acute respiratory failure with hypoxemia J96.01 Acute encephalopathy G93.40 Aphasia R47.01 Cerebrovascular accident, old Z86.73 Acute exacerbation of chronic obstructive airways disease J44.1 Asthma exacerbation J45.901 Acute kidney injury N17.9 Dizziness R42 Hyperkalemia E87.5 Transaminitis R74.01 Troponin level elevated R77.8 Hyperglycemia R73.9 Ketonuria R82.4 Smoking addiction F17.200
[2022-06-30] MEDS: atorvastatin 40 mg Tablet 20 MG PO (17:51)
[2022-06-30 20:49] LABS: Glucose Point of Care 140 mg/dL (70-110)
[2022-07-01] VITALS (10 sets, daily range): BP systolic 168–183; BP diastolic 85–102; PULSE 92–103; RESP 17–21; TEMP 36.6–36.9; O2SAT 92–95
[2022-07-01] MEDS: cefTRIAXone 1,000 MG in sodium chloride 0.9% (plus) 50 ML 100 MG IV (00:35)
[2022-07-01 00:43] LABS: Glucose Point of Care 219 mg/dL (70-110)
[2022-07-01] MEDS: heparin 5,000 unit/mL INJ 1 mL 5000 UNIT SUBCUT (00:43)
[2022-07-01] MEDS: insulin lispro 100 unit/1 mL SUBCUT (00:47)
[2022-07-01 06:47] LABS: Glucose Point of Care 119 mg/dL (70-110)
[2022-07-01] MEDS: acetylcysteine 200 mg/mL SDV 4 mL 100 MG INHALATION ×2 (07:38→11:01)
[2022-07-01] MEDS: ipratropium-albuterol 3 mL Neb INHALATION ×2 (07:39→11:00)
[2022-07-01] MEDS: budesonide 0.5 mg/2 mL Neb 0.25 MG INHALATION (07:39)
[2022-07-01] MEDS: pantoprazole DR 40 mg Tablet PO (08:34)
[2022-07-01] MEDS: amlodipine 10 mg Tablet PO (08:34)
[2022-07-01] MEDS: thiamine 100 mg Tablet PO (08:34)
[2022-07-01] MEDS: aspirin 81 mg EC Tablet PO (08:34)
[2022-07-01] MEDS: guaiFENesin 600 mg Tablet 1200 MG PO (08:34)
[2022-07-01] MEDS: hyDRALAzine 50 mg Tablet PO (09:10)
--- NOTE | 2022-07-01 10:17 | PM.DCS ---
Discharge Providers Date of Admission: 06/27/22 22:12 Date of Discharge: July 01, 2022 Attending Provider at Admission: Jag Mcgee Attending Provider at Discharge: Cheo hSarif MD Diagnoses at Discharge Discharge Diagnosis (1) Acute respiratory failure with hypoxemia: Status: Acute (2) Acute encephalopathy: Status: Acute (3) Aphasia: Status: Acute (4) Cerebrovascular accident, old: Status: Acute (5) Acute exacerbation of chronic obstructive airways disease: Status: Acute (6) Asthma exacerbation: Status: Acute (7) Acute kidney injury: Status: Acute (8) Dizziness: Status: Acute (9) Hyperkalemia: Status: Acute (10) Transaminitis: Status: Acute (11) Troponin level elevated: Status: Acute (12) Hyperglycemia: Status: Acute (13) Ketonuria: Status: Acute (14) Smoking addiction: Status: Acute Reason for Visit Reason for Visit: Respiratory Arrest Hospital Course Hospital Course 57-year-old female with past medical history of hypertension asthma COPD, was brought in with chief complaint of altered mental status she was admitted for the management of Acute respiratory failure with hypoxia and hypercapnia possibly secondary to COPD asthma exacerbation,Pneumonia , Likely prerenal DANIEL on CKD: With possible contribution from NSAID, losartan HCTZ. Elevated troponin likely type II NSTEMI, Altered mental status likely secondary to hypercapnic/hypoxic, respiratory failure/ Drug Use utox was positive for amphetamine / Likely prerenal DANIEL on CKD: With possible contribution from NSAID, losartan HCTZ hypertension, COPD, Hyperkalemia,Newly diagnosed diabetes.Patient was intubated in field by the EMS, and she was on mechanical ventilation, broad spectrum abxs, steroids , duo nebs, Blood culture: NTD , MRCA PCR : Negative, Sputum culture :MSSA, COVID PCR negative, CT chest abdomen and pelvis without contrast: No acute finding CT head without contrast: No acute intracranial pathology 2D echo:?Normal left ventricular size, systolic function and wall ?thickness, with no regional wall motion abnormalities.Grade ?I/IV diastolic dysfunction (abnormal relaxation filling pattern), normal to mildly elevated filling pressures. Left ?ventricular ejection fraction is estimated at 65%. Structurally normal mitral valve. Trace mitral valve regurgitation. Normal pericardium without effusion.Left pleural effusion.ABG and xray chest was monitored, later she was successfully at the time of discharge she was saturating well on R/A. For her DANIEL Kidney function was improving SCR at the time of discharge was 1.2, losratn and HCTZ has been kept on hold she was started on Amlodipine and Hydralazine on discharge, she will follow with repeat BMP in a week with her PCP. she was discharged on augmentin for possible MSSA pna.For her newly diagnosed diabetes she was discharged on glipizide 5 mg po daily.Patient responded well to above medical management and was discharged in stable condition to home. she will follow with her PCP as outpatient. Physical Exam Narrative: Alert awake and oriented to self, person and place Resp: COMMON NORMALS: clear to auscultation bilaterally AUSCULTATION: clear to auscultation bilaterally Cardio: COMMON NORMALS: regular rate, regular rhythm, S1 normal heart sound present, S2 normal heart sound present, No gallops present (Cardio), No murmurs present (Cardio), No rub (Cardio) and Peripheral pulses 2+ throughout RATE: regular rate RHYTHM: regular rhythm HEART SOUNDS: S1 normal heart sound present and S2 normal heart sound present PERIPHERAL PULSES: Peripheral pulses 2+ throughout GI: COMMON NORMALS: Normal to inspection, nondistended, normoactive bowel sounds present, Soft to palpation, non-tender, No hepatosplenomegaly present and no masses AUSCULTATION: Yes normoactive bowel sounds PALPATION: Yes Soft to palpation and Yes No hepatosplenomegaly present RECTAL EXAM: deferred Extremity: COMMON NORMALS: no clubbing, cyanosis or edema and no pedal edema Urinary Catheter Management: [facility]: Cath Placed During This Visit: yes Reason for Continuing Indwelling Catheter: Acute Urinary Retention or Obstruction Urinary Catheter Date of Insertion: 06/27/22 Urinary Catheter Time of Insertion: 20:05 Discharge Data Studies Completed and Pending Completed Studies During Hospitalization Category [place] [id number] Stat Cat Scan 06/27/22 17:[address] head wo con* [id number] Stat Cat Scan 06/27/22 17:48 Completed XR chest 1V [id number] Stat Exams 06/27/22 20:11 Completed XR chest 1V portable [id number] Stat Exams 06/27/22 17:42 Completed CV. echo complete* [id number] Routine Ultrasound 06/28/22 00:33 Completed Pending at discharge Category Date Time Status BMP [Basic Metabolic Panel] Routine Lab 07/01/22 09:58 Received Blood Culture Stat Lab 06/27/22 18:25 Results CBC Auto Diff [Complete Blood Count w/Auto] Routine Lab 07/01/22 09:58 Results Sputum Culture and Gram Stain Stat Lab 06/28/22 00:25 Results Radiology Impressions Chest/Abdomen/Pelvis CT 06/27/22 17:48 IMPRESSION: No acute findings. IMPRESSION: No acute findings. Head CT 06/27/22 17:48 IMPRESSION: 1. No acute intracranial abnormality. 2. Old lacunar infarct in the right caudate head. Chest X-Ray 06/27/22 20:11 IMPRESSION: Proper positioning of support apparatus. Laboratory Results WBC 10.7 10^3/uL (4.0-10.0) H 06/30/22 03:42 RBC 3.86 10^6/uL (4.1-5.3) L 06/30/22 03:42 Hgb 8.5 g/dL (11.5-15.3) L 06/30/22 03:42 Hct 28.6 % (37.0-47.0) L 06/30/22 03:42 MCV 74.1 fl (81-99) L 06/30/22 03:42 MCH 22.0 pg (28.0-34.0) L 06/30/22 03:42 MCHC 29.7 g/dL (30.0-36.0) L 06/30/22 03:42 RDW 20.0 % (12.1-15.1) H 06/30/22 03:42 Plt Count 202 10^3/cmm (130-400) 06/30/22 03:42 MPV 11.0 fL (7.4-10.4) H 06/30/22 03:42 Neut % (Auto) 84.9 % 06/30/22 03:42 Lymph % (Auto) 7.4 % 06/30/22 03:42 Schley % (Auto) 7.0 % 06/30/22 03:42 Eos % (Auto) 0.0 % 06/30/22 03:42 Baso % (Auto) 0.1 % 06/30/22 03:42 Neut # (Auto) 9.08 10^3/uL (1.8-7.7) H 06/30/22 03:42 Lymph # (Auto) 0.8 10^3/uL (0.8-4.8) 06/30/22 03:42 Schley # (Auto) 0.8 10^3/uL (0.2-0.9) 06/30/22 03:42 Eos # (Auto) 0.0 10^3/uL (0.0-0.8) 06/30/22 03:42 Baso # (Auto) 0.0 10^3/uL (0.0-0.1) 06/30/22 03:42 Nucleated RBC % (auto) 0 % 06/30/22 03:42 Nucleated RBCs # 0.0 /100WBC 06/30/22 03:42 D-Dimer 1.42 ug/mIFEU (0-0.59) H 06/28/22 00:36 Specimen Type Arterial 06/29/22 03:54 Sample Site Radial, right 06/29/22 03:54 ABG pH 7.34 (7.35-7.45) L 06/29/22 03:54 ABG pCO2 39.3 mmHg (35-45) 06/29/22 03:54 ABG pO2 84.7 mmHg (80.0-100.0) 06/29/22 03:54 ABG HCO3 21.3 mmol/L (22-26) L 06/29/22 03:54 ABG O2 Saturation 96.7 06/29/22 03:54 ABG Base Excess -4.1 mmol/L (-2.0-2.0) L 06/29/22 03:54 Zachary Test Pos 06/29/22 03:54 A-a O2 Gradient 10.2 mmHg (5-10) H 06/29/22 03:54 Hematocrit 28.8 % (37-47) L 06/29/22 03:54 Hgb O2 Saturation 94.6 % (95-100) L 06/29/22 03:54 Carboxyhemoglobin 1.0 %THgb (0.4-20.1) 06/29/22 03:54 Methemoglobin 1.2 % (0.4-1.5) 06/29/22 03:54 Total Hemoglobin 9.4 g/dL (12-16) L 06/29/22 03:54 Sodium 141.0 mmol/L (131-143) 06/29/22 03:54 Potassium 3.9 mmol/L (3.5-5.0) 06/29/22 03:54 Glucose 154.0 mg/dL (70-115) H 06/29/22 03:54 Ionized Calcium 1.3 mmol/L (1.1-1.4) 06/29/22 03:54 O2 Delivery Device Vent 06/29/22 03:54 FiO2 30.0 % 06/29/22 03:54 Tidal Volume 0.40 06/29/22 03:54 PEEP 8.0 cmH20 06/29/22 03:54 Speech And Language Assistant ID John 06/29/22 03:54 Sodium 142 mmol/L (136-145) 06/30/22 03:42 Potassium 4.1 mmol/L (3.5-5.1) 06/30/22 03:42 Chloride 107 mmol/L (98-107) 06/30/22 03:42 Carbon Dioxide 23 mmol/L (22-29) 06/30/22 03:42 Anion Gap 16.1 (5-19) 06/30/22 03:42 BUN 41 mg/dL (6-20) H 06/30/22 03:42 Creatinine 1.7 mg/dL (0.5-0.9) H 06/30/22 03:42 GFR Calculation 30.8 mL/min (90-130) L 06/30/22 03:42 Glucose 97 mg/dL (65-115) 06/30/22 03:42 POC Glucose 119 mg/dL (70-110) H 07/01/22 06:43 Estimat Average Glucose 140 06/28/22 00:36 Hemoglobin A1c 6.5 % (4.0-6.0) H 06/28/22 00:36 Specific [place] Not Reportable 06/27/22 20:05 Calculated Osmolality 304 mOsm/kg (285-295) H 06/30/22 03:42 Lactic Acid 0.9 mmol/L (0.5-2.2) 06/27/22 17:46 Calcium 9.4 mg/dL (8.5-10.5) 06/30/22 03:42 Magnesium 2.0 mg/dL (1.7-2.3) 06/28/22 00:36 Total Bilirubin 0.2 mg/dL (0.15-1.2) 06/30/22 03:42 AST 36 U/L (0-32) H 06/30/22 03:42 ALT 21 U/L (0-33) 06/30/22 03:42 Alkaline Phosphatase 125 U/L (35-105) H 06/30/22 03:42 Creatine Kinase 271 U/L (26-192) H 06/28/22 00:36 Troponin T Baseline 41 ng/L (0-10) H 06/27/22 17:46 Troponin T 120 Minute 30.47 ng/L (0-10) H 06/27/22 19:49 Delta Troponin T -10.53 ABS# (0-10) L 06/27/22 19:49 Troponin T Hi Sens 6Hr 33.81 ng/L (0-10) H 06/28/22 00:36 Troponin T Hi Sens 6Hr Delta -7.19 ng/L (0-12) L 06/28/22 00:36 Total Protein 7.1 g/dL (6.6-8.7) 06/30/22 03:42 Albumin 2.8 g/dL (3.5-5.2) L 06/30/22 03:42 Globulin 4.3 g/dL (1.3-4.6) 06/30/22 03:42 Urine Color Yellow (Yellow) 06/27/22 20:05 Urine Appearance Clear (CLEAR) 06/27/22 20:05 Urine pH 5 (5-7) 06/27/22 20:05 Urine pH 5.6 (4.5-9.0) 06/27/22 20:05 Ur Specific [place] 1.025 (1.005-1.030) 06/27/22 20:05 Urine Protein 1+ (Negative) H 06/27/22 20:05 Urine Glucose (UA) Norm (Normal) 06/27/22 20:05 Urine Ketones 1+ (Negative) H 06/27/22 20:05 Urine Blood 3+ (Negative) H 06/27/22 20:05 Urine Nitrate Negative (Negative) 06/27/22 20:05 Urine Bilirubin 1+ (Negative) H 06/27/22 20:05 Prot Sulfosalicylic Acd Negative (Negative) 06/27/22 20:05 Urine Urobilinogen Norm mg/dL (Negative) 06/27/22 20:05 Ur Leukocyte Esterase Negative (Negative) 06/27/22 20:05 Urine RBC 0-4 /hpf (0-2) H 06/27/22 20:05 Urine WBC 0-4 /hpf (0-5) H 11 20:05 Ur Squamous Epith Cells 0-4 /hpf (0-5) H 06/27/22 20:05 Amorphous Sediment Not Reportable 06/27/22 20:05 Urine Bacteria Trace /hpf (NONE) 06/27/22 20:05 Hyaline Casts 5-10 /lpf H 06/27/22 20:05 Urine Oxidant Negative mcg/mL (<200) 06/27/22 20:05 Urine Opiates Screen Negative ng/mL (Negative) 06/29/22 14:45 Urine Opiates Level Negative ng/mL (<100) 06/27/22 20:05 Urine Oxycodone Negative ng/mL (<100) 06/27/22 20:05 U Methadone Metabolites Negative ng/mL (<100) 06/27/22 20:05 Barbiturates Negative ng/mL (<300) 06/27/22 20:05 Ur Barbiturates Screen Negative ng/mL (Negative) 06/29/22 14:45 Phencyclidine (PCP) Negative ng/mL (<25) 06/27/22 20:05 Ur Phencyclidine Scrn Negative ng/mL (Negative) 06/29/22 14:45 Amphetamines Positive ng/mL (<500) A 06/27/22 20:05 Ur Amphetamines Screen Positive ng/mL (Negative) H 06/29/22 14:45 Benzodiazepines Negative ng/mL (<100) 06/27/22 20:05 U Benzodiazepines Scrn Negative ng/mL (Negative) 06/29/22 14:45 Cocaine Metabolite Negative ng/mL (<150) 06/27/22 20:05 Urine Cocaine Screen Negative ng/mL (Negative) 06/29/22 14:45 U Marijuana (THC) Screen Negative ng/mL (Negative) 06/29/22 14:45 U Marijuana Metabolites Negative ng/mL (<20) 06/27/22 20:05 Abn Spec Valid Drug Scn Not Reportable 06/27/22 20:05 Urine Drug Screen Note See note 06/27/22 20:05 Serum Ketones Negative (Negative) 06/28/22 00:36 Coronavirus 229E (PCR) Not detected (NOT DETECT) 06/28/22 01:36 SARS-CoV-2 (PCR) Not detected (NOT DETECT) 06/28/22 01:36 SARS-CoV-2 Ag (Rapid) negative (Negative) 06/27/22 18:25 Vitals Last Vital Signs Temp 98.0 F 07/01/22 07:31 Pulse 95 07/01/22 07:50 Resp 18 07/01/22 07:40 BP 178/98 07/01/22 07:31 Pulse Ox 92 07/01/22 07:40 O2 Del Method 07/01/22 07:40 O2 Flow Rate 3 06/30/22 00:06 FiO2 30 06/29/22 09:34 Discharge Plan Discharge Patient Disposition: Home Condition: Stable Prescriptions: New amlodipine 10 mg Tablet 10 mg PO DAILY 30 Days Qty: 30 3RF hydralazine 50 mg Tablet 50 mg PO TID 30 Days Qty: 90 1RF Augmentin 500-125 mg tablet 1 tab PO BID 7 Days Qty: 14 0RF glipizide 5 mg tablet 5 mg PO DAILY Qty: 30 0RF Continued atorvastatin 20 mg tablet 20 mg PO QPM ipratropium-albuterol 0.5 mg-3 mg(2.5 mg base)/3 mL solution for nebulization 3 ml INHALATION Q6H PRN (Reason: Shortness Of Breath Or Wheezing) omeprazole 40 mg capsule,delayed release(DR/EC) 40 mg PO DAILY baclofen 20 mg tablet 20 mg PO BID albuterol sulfate 90 mcg/actuation HFA aerosol inhaler 2 puff INHALATION Q4H PRN (Reason: Shortness Of Breath Or Wheezing) Mucinex 600 mg Tablet Extended Release 12hr 1,200 mg PO BID PRN (Reason: Cough) Held losartan-hydrochlorothiazide 100-25 mg tablet 1 tab PO DAILY Hold Instructions: Resume on 07/15/22. Follow with repeaT bmp IN 2 weeks with PCP.At that time a decision can be made regarding the current medications. Discontinued meloxicam 15 mg tablet 15 mg PO DAILY Discharge Orders: Discharge Order (Routine); Ordered 07/01/22 Ordered By: Cheo Sharif Discharge Diet: Diabetic Patient Instructions: Glipizide (By mouth), Amoxicillin/Clavulanate Potassium (By mouth), Hydralazine (By mouth), Amlodipine (By mouth), How to Stop Smoking (GEN), Opioid Safety Activity Restrictions/Additional Instructions: PLEASE CONTACT DR. TAM'S OFFICE Saturday TO SCHEDULE A HOSPITAL FOLLOW UP APPOINTMENT WITHIN 1 WEEK. THANK YOU! Discharge Attestations Time Spent in Discharge Care*: less than 30 min Quality Metrics Clinical Quality Measures [ No reported AMI, CVA or VTE this stay] Coding Level of Care Code Acute Chg FW DC note Diagnoses Acute respiratory failure with hypoxemia J96.01 Acute encephalopathy G93.40 Aphasia R47.01 Cerebrovascular accident, old Z86.73 Acute exacerbation of chronic obstructive airways disease J44.1 Asthma exacerbation J45.901 Acute kidney injury N17.9 Dizziness R42 Hyperkalemia E87.5 Transaminitis R74.01 Troponin level elevated R77.8 Hyperglycemia R73.9 Ketonuria R82.4 Smoking addiction F17.200
[2022-07-01 10:19] LABS: Basophils % 0.2 %; Hematocrit 36.3 % (37.0-47.0); Hemoglobin 10.7 g/dL (11.5-15.3); Lymphocytes # 0.9 10^3/uL (0.8-4.8); Lymphocytes % 7.7 %; Mean Corpuscular HGB Conc 29.5 g/dL (30.0-36.0); Mean Corpuscular Hemoglobin 21.9 pg (28.0-34.0); Mean Corpuscular Volume 74.4 fl (81-99); Mean Platelet Volume 10.7 fL (7.4-10.4); Monocytes # 0.2 10^3/uL (0.2-0.9); Monocytes % 2.1 %; Neutrophils # 9.74 10^3/uL (1.8-7.7); Neutrophils % 88.4 %; Nucleated Red Blood Cells % 0.2 %; Platelet Count 263 10^3/cmm (130-400); Red Blood Count 4.88 10^6/uL (4.1-5.3); Red Cell Distribution Width 20.4 % (12.1-15.1)
[2022-07-01 10:33] LABS: Anion Gap 17.5 (5-19); Blood Urea Nitrogen 32 mg/dL (6-20); Calcium 9.7 mg/dL (8.5-10.5); Carbon Dioxide 22 mmol/L (22-29); Chloride 99 mmol/L (98-107); Glucose 263 mg/dL (65-115); Osmolality Calculated 294 mOsm/kg (285-295); Potassium 4.5 mmol/L (3.5-5.1); Sodium 134 mmol/L (136-145)
--- NOTE | 2022-07-01 12:17 | PC.NURSE ---
IV removed intact. Patient tolerated well. Reviewed patient's discharge with patient and daughter at this time. Patient verbalized understanding. Patient and daughter verbalized understanding of follow up appointments and to pick up truck driver medications. Patient wheel chaired to private car.
== END 2022-07-01 12:19 | disposition home health service (06) | DRG 208 ==
LOC: ER 22:21 → ICU 23:08 → MEDSURG 06-30 15:52
PROVIDERS: Family Medicine; Admitting Provider Internal Medicine; Emergency Provider Emergency Medicine; Visit Provider Internal Medicine
DX: J96.02 Acute respiratory failure with hypercapnia (principal); I21.A1 Myocardial infarction type 2; J18.9 Pneumonia, unspecified organism; R47.01 Aphasia; J44.0 Chronic obstructive pulmonary disease with (acute) lower respiratory infection; J45.901 Unspecified asthma with (acute) exacerbation; J44.1 Chronic obstructive pulmonary disease with (acute) exacerbation; G93.40 Encephalopathy, unspecified; N17.9 Acute kidney failure, unspecified; J96.01 Acute respiratory failure with hypoxia; Z86.73 Personal history of transient ischemic attack (TIA), and cerebral infarction without residual deficits; Z86.16 Personal history of COVID-19; F17.200 Nicotine dependence, unspecified, uncomplicated; E11.22 Type 2 diabetes mellitus with diabetic chronic kidney disease; E11.65 Type 2 diabetes mellitus with hyperglycemia; N18.9 Chronic kidney disease, unspecified; T39.395A Adverse effect of other nonsteroidal anti-inflammatory drugs [NSAID], initial encounter; E87.5 Hyperkalemia; B95.61 Methicillin susceptible Staphylococcus aureus infection as the cause of diseases classified elsewhere; Z79.51 Long term (current) use of inhaled steroids; F15.90 Other stimulant use, unspecified, uncomplicated
CPT/HCPCS: 36415; 36416; 36600; 51702; 70450; 71045; 71250; 74176; 80048; 80051; 80053; 80306; 80307; 81001; 82009; 82330; 82550; 82803; 82805; 82962; 83036; 83605; 83735; 84484; 85025; 85378; 87040; 87070; 87077; 87186; 87205; 87426; 87635; 87641; 93005; 93306; 94002; 94003; 94640; 94664; 94799; 96365; 96366; 96372; 96375; 97116; 97161; 99291; J0696; J1644; J1815; J2704; J2920; J2930; J3010; J3370; J7030; J7608; J7613; J7626